=== PATIENT | male | born 1985 | race Caucasian/White ===

== ENCOUNTER 2018-10-28 11:35 | Emergency (ER) | payer MEDICAID, SELFPAY ==
[2018-10-28 11:49] VITALS: BP 140/78; PULSE 84; RESP 16; TEMP 36.8; O2SAT 98
--- NOTE | 2018-10-28 12:05 | W.ED.GENAD ---
Discharge Plan Disposition Patient Disposition: HOME Condition: Stable Discharge Details Chief Complaint: Nk/Back Pain Clinical Impression: Lumbar strain Primary Care Provider: None,None ED Provider: Duong Cedillo Home Meds and New Rx's Prescriptions: New cyclobenzaprine 10 mg tablet 10 mg PO TID PRN (Reason: muscle spasm) Qty: 20 RF: 0 No Action ibuprofen [Ibuprofen IB] 200 MG tablet 400 mg PO QID PRN PRNRF: 0 Discharge Instructions Instructions: Low Back Strain (ED) Additional Instructions: you can take 1000mg tylenol and 600mg ibuprofen every 6 hours for pain as needed I have placed you on a list to follow up with a primary care provider within 2 weeks if you have fevers, inability to urinate or new pain such as abdominal pain return to the emergency department Stand Alone Forms: Work Release Medical Decision Making 33 yo male who denies chronic med problems, no ivdu or prior back surgeries, comes in with lower back pain. states it started at work while lifting a case of beer while bending down. Did not fall or have trauma. Has pain throughout the lumbar region, no midline pain or stepoffs. No saddle anesthesia and normal motor and sensation of the lower legs, urinarting without difficulty, no findings to suggest sea/cauda equina so do not feel emergent mri indicated. No trauma sodo not feel xrays or ct indicated as unlikely fx. No abdominal pain so doubt entities such as sbo, appendicitis, pancreatitis or other acute abdominal pathology. normal vascular exam so doubt dissection at this time. Suspect lumbar strain and less likely disc herniation. Advised f/u with pcp and return precautions given Differential Diagnosis lumbar strain, disc herniation, muscle spasm HPI General Mode of arrival: ambulatory. Date/Time Provider Initiated Documentation: 10/28/18 11:39. Limitations to Documentation: no limitations. Information obtained by: patient. History of Present Illness 33 year old M presents to the emergency department with the chief complaint of back pain, described as moderate, with intensity rated at 6. Quality is described as aching, and is localized to the back. Patient reports no radiation. Patient started experiencing this day(s) (1) and it has been constant. other things that improve symptom(s), (laying flat) Other factors that worsen symptoms (standing ) . Patient notes no other symptoms.. Patient did receive the following treatments prior to arrival, NSAID Related Data Home Medications Medication Instructions Recorded Confirmed ibuprofen [Ibuprofen Ib] 400 mg PO QID PRN PRN 06/23/13 10/28/18 cyclobenzaprine 10 mg PO TID PRN #20 tab 10/28/18 Previous Rx's Medication Instructions Recorded cyclobenzaprine 10 mg PO TID PRN #20 tab 10/28/18 Allergies Allergy/AdvReac Type Severity Reaction Status Date / Time No Known Allergies Allergy Unverified 10/28/18 11:53 General Stated Complaint: Nk/Back Pain AMELIE: 4 Review of Systems Review of Systems All systems reviewed & are unremarkable except as noted in HPI and below Constitutional Denies chills, Denies fever(s) and Denies weakness ENT Denies change in voice Cardiovascular Denies chest pain and Denies dyspnea Respiratory Denies dyspnea Gastrointestinal Denies abdominal pain, Denies nausea and Denies vomiting Genitourinary Denies dysuria Musculoskeletal Denies joint swelling Integumentary/Breasts Denies rash Neurologic Denies weakness Psychiatric Denies depression [facility] Social History Smoking/Tobacco Use Status: Current every day Exam Const General: no acute distress Orientation: alert HENMT Head: normal to inspection Ears: external ears normal General nose exam: external nose normal Mouth: moist mucous membranes Eyes General: appearance normal, both eyes and all related structures Neck Neck: normal visual inspection Resp Effort & Inspection: normal respiratory effort and able to speak in complete sentences Cardio Rate: regular rate Back/Spine/Pelvis Back: no CVA tenderness Skin General skin exam: no rashes or lesions noted Neuro General: alert and oriented x3 Extrem General: normal to inspection Psych Mental Status: mental status grossly normal Course Vital Signs Temperature 36.8 C 10/28/18 11:49 Pulse 84 10/28/18 11:49 Respiratory Rate 16 10/28/18 11:49 Blood Pressure 140/78 10/28/18 11:49 Pulse Oximetry 98 10/28/18 11:49 Temperature 36.8 C 10/28/18 11:49 Temperature Source Temporal Artery Scan 10/28/18 11:49 Pulse 84 10/28/18 11:49 Respiratory Rate 16 10/28/18 11:49 Respiratory Effort Non-Labored 10/28/18 11:52 Blood Pressure 140/78 10/28/18 11:49 Blood Pressure Position Sitting 10/28/18 11:49 Pulse Oximetry 98 10/28/18 11:49 Oxygen Delivery Method Room Air 10/28/18 11:49 Oxygen Flow Rate 0 10/28/18 11:49 Pain Level 6 10/28/18 11:49
--- NOTE | 2018-10-28 12:09 | ED.GENADUL_ITS ---
Discharge Plan Disposition Patient Disposition: HOME Condition: Stable Discharge Details Chief Complaint: Nk/Back Pain Clinical Impression: Lumbar strain Primary Care Provider: None,None ED Provider: Duong Cedillo Home Meds and New Rx's Prescriptions: New cyclobenzaprine 10 mg tablet 10 mg PO TID PRN (Reason: muscle spasm) Qty: 20 RF: 0 No Action ibuprofen [Ibuprofen IB] 200 MG tablet 400 mg PO QID PRN PRNRF: 0 Discharge Instructions Instructions: Low Back Strain (ED) Additional Instructions: you can take 1000mg tylenol and 600mg ibuprofen every 6 hours for pain as needed I have placed you on a list to follow up with a primary care provider within 2 weeks if you have fevers, inability to urinate or new pain such as abdominal pain return to the emergency department Stand Alone Forms: Work Release Medical Decision Making 33 yo male who denies chronic med problems, no ivdu or prior back surgeries, comes in with lower back pain. states it started at work while lifting a case of beer while bending down. Did not fall or have trauma. Has pain throughout the lumbar region, no midline pain or stepoffs. No saddle anesthesia and normal motor and sensation of the lower legs, urinarting without difficulty, no findings to suggest sea/cauda equina so do not feel emergent mri indicated. No trauma sodo not feel xrays or ct indicated as unlikely fx. No abdominal pain so doubt entities such as sbo, appendicitis, pancreatitis or other acute abdominal pathology. normal vascular exam so doubt dissection at this time. Suspect lumbar strain and less likely disc herniation. Advised f/u with pcp and return precautions given Differential Diagnosis lumbar strain, disc herniation, muscle spasm HPI General Mode of arrival: ambulatory . Date/Time Provider Initiated Documentation: 10/28/18 11:39 . Limitations to Documentation: no limitations . Information obtained by: patient . History of Present Illness 33 year old M presents to the emergency department with the chief complaint of back pain, described as moderate, with intensity rated at 6. Quality is described as aching, and is localized to the back. Patient reports no radiation. Patient started experiencing this day(s) (1) and it has been constant. other things that improve symptom(s), (laying flat) Other factors that worsen symptoms (standing ) . Patient notes no other symptoms.. Patient did receive the following treatments prior to arrival, NSAID Related Data Home Medications Medication Instructions Recorded Confirmed ibuprofen [Ibuprofen Ib] 400 mg PO QID PRN PRN 06/23/13 10/28/18 cyclobenzaprine 10 mg PO TID PRN #20 tab 10/28/18 Previous Rx's Medication Instructions Recorded cyclobenzaprine 10 mg PO TID PRN #20 tab 10/28/18 Allergies Allergy/AdvReac Type Severity Reaction Status Date / Time No Known Allergies Allergy Unverified 10/28/18 11:53 General Stated Complaint: Nk/Back Pain AMELIE: 4 Review of Systems Review of Systems All systems reviewed & are unremarkable except as noted in HPI and below Constitutional Denies chills, Denies fever(s) and Denies weakness ENT Denies change in voice Cardiovascular Denies chest pain and Denies dyspnea Respiratory Denies dyspnea Gastrointestinal Denies abdominal pain, Denies nausea and Denies vomiting Genitourinary Denies dysuria Musculoskeletal Denies joint swelling Integumentary/Breasts Denies rash Neurologic Denies weakness Psychiatric Denies depression [facility] Social History Smoking/Tobacco Use Status: Current every day Exam Const General: no acute distress Orientation: alert HENMT Head: normal to inspection Ears: external ears normal General nose exam: external nose normal Mouth: moist mucous membranes Eyes General: appearance normal, both eyes and all related structures Neck Neck: normal visual inspection Resp Effort & Inspection: normal respiratory effort and able to speak in complete sentences Cardio Rate: regular rate Back/Spine/Pelvis Back: no CVA tenderness Skin General skin exam: no rashes or lesions noted Neuro General: alert and oriented x3 Extrem General: normal to inspection Psych Mental Status: mental status grossly normal Course Vital Signs Temperature 36.8 C 10/28/18 11:49 Pulse 84 10/28/18 11:49 Respiratory Rate 16 10/28/18 11:49 Blood Pressure 140/78 10/28/18 11:49 Pulse Oximetry 98 10/28/18 11:49 Temperature 36.8 C 10/28/18 11:49 Temperature Source Temporal Artery Scan 10/28/18 11:49 Pulse 84 10/28/18 11:49 Respiratory Rate 16 10/28/18 11:49 Respiratory Effort Non-Labored 10/28/18 11:52 Blood Pressure 140/78 10/28/18 11:49 Blood Pressure Position Sitting 10/28/18 11:49 Pulse Oximetry 98 10/28/18 11:49 Oxygen Delivery Method Room Air 10/28/18 11:49 Oxygen Flow Rate 0 10/28/18 11:49 Pain Level 6 10/28/18 11:49
[2018-10-28 12:15] VITALS: BP 140/78; PULSE 84; RESP 16; TEMP 36.8; O2SAT 98
== END 2018-10-28 12:16 | disposition home or self-care (01) ==
PROVIDERS: Emergency Provider Emergency Medicine
DX: S39.012A Strain of muscle, fascia and tendon of lower back, initial encounter (principal); X50.0XXA Overexertion from strenuous movement or load, initial encounter
CPT/HCPCS: 99283

== ENCOUNTER 2019-09-02 16:27 | Outpatient (CLI) | payer MEDICAID, SELFPAY ==
--- NOTE | 2019-09-02 13:30 | DI.RAD_ITS ---
EXAM: XR LUMBAR SPINE COMPLETE CLINICAL HISTORY: Low back pain with worsening R leg weakness,M54.5 TECHNIQUE: Five views were obtained. COMPARISON: No exams were available for comparison FINDINGS: There is moderate right convex lumbar scoliosis. The intervertebral disc spaces are well maintained. There is an apparent developmental defect of the anterior superior endplate of L5 vertebral body. There is no evidence of spondylolysis or spondylolisthesis. The SI joints appear well maintained as visualized. IMPRESSION: No evidence of acute process
== END 2019-09-02 16:47 ==
PROVIDERS: PCP Nurse Practitioner; Visit Provider Family Medicine
DX: M54.5 Low back pain (principal); R29.898 Other symptoms and signs involving the musculoskeletal system
CPT/HCPCS: 72110

== ENCOUNTER 2019-09-04 22:39 | Emergency (ER) | payer MEDICAID, SELFPAY ==
[2019-09-04 23:17] VITALS: BP 151/81; PULSE 105; RESP 18; TEMP 37; O2SAT 94
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
[2019-09-05] MEDS: Ketorolac 30 MG/ML VIAL IM (00:28)
[2019-09-05] MEDS: diazePAM 5 MG TAB PO (00:28)
[2019-09-05] MEDS: Lidocaine 5% Patch 1 PATCH TP (01:26)
[2019-09-05 01:34] VITALS: BP 131/76; PULSE 76; RESP 16; O2SAT 95
== END 2019-09-05 02:10 | disposition home or self-care (01) ==
PROVIDERS: Emergency Provider Student in an Organized Health Care Education/Training Program; PCP Nurse Practitioner
DX: M54.16 Radiculopathy, lumbar region (principal); X50.9XXA Other and unspecified overexertion or strenuous movements or postures, initial encounter
CPT/HCPCS: 96372; 99284; J1885

== ENCOUNTER 2019-09-06 17:17 | Outpatient (CLI) | payer MEDICAID, SELFPAY ==
--- NOTE | 2019-09-06 15:15 | DI.RAD_ITS ---
EXAM: XR HIP RT COMPLETE AND AP PELVIS INDICATION: Worsening sciatica, need to rule out hip fracture. COMPARISON: No exams were available for comparison TECHNIQUE: 2D digital imaging was performed. FINDINGS: No acute fracture or dislocation is identified. The sacroiliac joints and symphysis pubis are intact . Bones are normally mineralized. The soft tissues are unremarkable. IMPRESSION: Negative examination.
== END 2019-09-06 17:37 ==
PROVIDERS: PCP Nurse Practitioner; Visit Provider Family Medicine
DX: M25.551 Pain in right hip (principal); M54.31 Sciatica, right side
CPT/HCPCS: 73502

== ENCOUNTER 2022-04-29 02:13 | Inpatient (IN) | payer MEDICAID, SELFPAY ==
[2022-04-29] VITALS (20 sets, daily range): BP systolic 103–150; BP diastolic 48–87; PULSE 67–96; RESP 13–20; TEMP 36.3–37.1; O2SAT 92–100
--- NOTE | 2022-04-29 | DI.CT_ITS ---
Exam(s) CT ABDOMEN PELVIS WO EXAM: CT ABDOMEN PELVIS WO CLINICAL HISTORY: NAUSEA, VOMITING, ABD PAIN. TECHNIQUE: Imaging Protocol: Axial computed tomography images with coronal and sagittal reformatted images were created and reviewed. Oral: no COMPARISON: No exams were available for comparison FINDINGS: ABDOMEN: Lung Bases: Normal where visualized. Liver: Normal density. No measurable mass. Gallbladder and biliary tract: No radiodense calculus or dilation. Pancreas: Some motion artifact at this level. Normal density, no abnormal calcifications or inflamma tory process. Spleen: Normal. Kidneys: Normal size, contour and axis. No radiodense stones or obstructive uropathy. No masses seen. Adrenal glands: No masses seen. Lymph nodes: Within normal limits. Abdominal Aorta: Abdominal portion non-dilated. PELVIS: Bladder: Symmetric distention, no gross wall thickening. Bowel: The appendix is dilated extends medially from the cecum. There are surrounding inflammatory c hanges anterior to the right psoas muscle. There are multiple adjacent reactive lymph nodes. No di screte abscess or perforation. No free fluid. Diverticulosis is noted in the sigmoid region. No di verticulitis. Stomach and small bowel unremarkable. No obstruction . Reproductive organs: Within normal limits. Bones: Within normal limits. IMPRESSION: Findings consistent with acute appendicitis. No perforation or abscess. RADIATION DOSE DELIVERED: 1,044.03mGy.cm Total DLP DATA REPOSITORY: All CT scans at this facility are submitted to the National Radiology Data Registry (NRDR) Dose Index Registry (DIR) with the [employer] (ACR). RADIATION OPTIMIZATION: All CT scans at this facility use at least one of these dose optimization te chniques: automated exposure control; mA and/or kV adjustment per patient size (includes targeted exa ms where dose is matched to clinical indication); or iterative reconstruction.
[2022-04-29] MEDS: Normal Saline 1,000 ML 1000 ML IV (03:00)
[2022-04-29] MEDS: Ondansetron 4 MG/2 ML VIAL IVP (03:00)
[2022-04-29] MEDS: PIPERACILLIN/TAZO 4.5 GM in Normal Saline 100 ML IVPB ×3 (05:20→17:54)
[2022-04-29] MEDS: Normal Saline 1,000 ML 75 ML IV (05:20)
[2022-04-29] MEDS: MORPHine 4 MG/ML SYR IVP (06:15)
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
[2022-04-29 07:16] LABS: Source Nasal/Nares
[2022-04-29 07:37] LABS: WBC 14.92 10^3/uL (4.4-10.8)
[2022-04-29 07:38] LABS: HCT 51.8 % (40.0-50.0); HGB 17.5 g/dL (13.5-17.5); MCH 28.4 pg (27.0-33.0); MCHC 33.8 % (32.0-36.0); MCV 84 fL (80-95); MPV 11.3 fL (8.0-11.0); Platelet Count 202 10^3/uL (130-400); RBC 6.16 10^6/uL (4.36-5.78); RDW 13.2 % (11.8-14.1); RDW-SD 40.1 fL
[2022-04-29 07:39] LABS: Abs Immature Grans 0.07 10^3/uL (0.0-0.06); Absolute Lymphocyte Count 2.88 10^3/uL (1.2-3.4); Absolute Monocyte Count 1.38 10^3/uL (0.1-0.8); Absolute Neutrophil Count 10.19 10^3/uL (1.2-6.7); Basophils % 0.7; Immature Grans % 0.5; Lymphocytes % 19.3; Monocytes % 9.2; Neutrophils % 68.3
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
[2022-04-29 07:40] LABS: Diff Comment Agrees w/ Instrument; RBC Morphology Normal
[2022-04-29 07:41] LABS: Albumin 3.5 g/dL (3.4-5.0); Alkaline Phosphatase 53 U/L (46-116); Anion Gap 8.6 mmol/L (3-11); BUN 15 mg/dL (7-18); Bilirubin, Total 0.6 mg/dL (0.2-1.0); CO2 29.4 mmol/L (21.0-32.0); Calcium 9.2 mg/dL (8.5-10.1); Chloride 100 mmol/L (98-107); Glucose 106 mg/dL (74-106); Potassium 4.1 mmol/L (3.5-5.1); Sodium 138 mmol/L (136-145)
[2022-04-29 07:42] LABS: ALT 24 U/L (16-63); AST 13 U/L (15-37); Lipase 81 U/L (73-393)
[2022-04-29 07:43] LABS: Bilirubin Negative (Negative); Blood Moderate (Negative); Clarity Clear (Clear); Glucose Negative (Negative); Ketones Trace mg/dL (Negative); Leukocyte Esterase Negative (Negative); Nitrite Negative (Negative); Specific Gravity >= 1.030 (1.005-1.025); Urobilinogen 0.2 EU/dL (Up TO 0.2); pH 5.5 (5-8)
[2022-04-29 07:44] LABS: Bacteria Rare HPF (Negative); Epithelial Cells Rare HPF (Negative); WBC 0-2 HPF (0-5)
[2022-04-29 07:45] LABS: C & S Indicated? No; Mucus Trace (Negative)
[2022-04-29 08:15] LABS: COVID-19 PCR Negative (Negative)
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
[2022-04-29] MEDS: Lactated Ringers 1,000 ML 30 ML IV (09:38)
--- NOTE | 2022-04-29 10:56 | APP_PTH ---
PATIENT: Del Harris LOC: [facility]#:[id number] AGE/SX: 37/M ROOM: 227 RE04/29/[address]: Elise Bashir : 1985 BED: A DIS: 05/01/2022 SPEC #: [id number] RECD: 04/29/22 12:50 STATUS: SOHAM REQ #: [id number] GUY: 04/29/22 10:[address]: Elise Bashir DEPT: Surgical Specimen RECD BY: Katina Saucedo ENTERED: 04/29/22 12:50 SP TYPE: Appendix OTHR DR: Eleonora Flores APRN Tissues: 1 - APPENDIX NOT INCIDENTAL Procedures: GROSS AND MICRO LEVEL 3 Comments: [id number]
[2022-04-29] MEDS: fentaNYL 100 MCG/2 ML VIAL IVP ×2 (11:59→12:24)
--- NOTE | 2022-04-29 12:12 | ROE_ITS ---
Date of service: 04/29/22 Time of Service: 12:12 Operative Note Operative Note DATE OF PROCEDURE: 04/29/22 PRE-OP DIAGNOSIS: Acute appendicitis POST-OP DIAGNOSIS: other (Ruptured appendix ) PROCEDURE: Attempted laparoscopic appendectomy Open appendectomy SURGEON: Elise Bashir TALENT ACQUISITION LEAD: Magdalene Larson ANESTHESIA TYPE: Local By Surgeon and General LMA/ETT Refer to Anesthesia Record ESTIMATED BLOOD LOSS: 25 PATHOLOGY: other COMPLICATIONS: None Patient was transported to: PACU Patient's condition: stable Procedure Description: INDICATIONS: The patient has signs and symptoms compatible with acute appendicitis and is brought to the OR for laparoscopic appendectomy, possible open procedure. Informed consent is obtained for the procedural (explained in simple layman's terms that the pt and/or family could understand) explaining risks vs benefits and alternatives to the procedure and consequences if we do not do the procedure. Risks include but are not limited to:bleeding,infections, pneumonia, blood clots/DVT/PE, anesthesia(aspiration, damage to teeth/airway/VA/CVA//prolonged mechanical ventilation/PTX/IV infections), damage to bowel, bladder,blood vessels, ureters. Damage to solid organs requiring removal. Infertility. Leakage from anastomosis requiring colostomy. Wound infections requirng further surgery. Scarring and disfigurement. Subsequent bowel obstructions from scar tissue. Possible open procedure if minimaly invsive procedure is being attempted. Abscess and stump appendicitis as well as others. DESCRIPTION OF PROCEDURE: The patient was brought to the operating room suite and placed in supine position. Anesthesia was administered per the Department of Anesthesia. A Correia catheter and OG tube are placed. The patient was prepped and draped in the usual sterile fashion using ChloraPrep scrub solution. Pause for the cause was done. 30 mL of 1% buffered was used for local anesthetization. A stab incision was made in the umbilicus and the Veress was inserted. Drop test was positive and insufflation was begun. When 15 mm of pressure was noted on the monitor, the Veress was removed, a #5 port inserted. Camera inserted through the port shows no damage to underlying structures. Bowel, liver and stomach that are visualized are normal in appearance. Pelvic organs are not visualized. The appendix is inflamed, erythematous,enlarged. There is purulent fluid around the appendix the appendix is curled back on itself and adhered down to the cecum.. There is no purulent drainage in the pelvis. A 12 mm port was then placed in the suprapubic position under direct visualization following creation of a local field block as well as a second 5 mm port in the LLQ. When I attempt to grasp the appendix and elevate it falls apart. We ended up with 3 separate pieces of. There is a purulent discharge that is spilled this is suctioned and the area irrigated. I am unable to define the base of the appendix. And I am unable to manipulate the appendix as it continues to fall apart. At this point it is evident that I cannot get this appendix out laparoscopically and the procedure is converted to open procedure. All laparoscopic instruments are passed off the field. A local anesthetic was infiltrated into the right lower quadrant and a small incision was made. Dissection was carried down to the fascia. The external oblique was sharply divided. The muscles were retracted apart. The peritoneum was then incised. Some nonpurulent fluid was obtained, and this was sent for culture. The appendix was easily identified. The cecum was carefully brought out of the incision using a Ama.??The remainder the appendix was then finger fractured/dissected out and removed. There is purulent material and membrane posterior to the cecum. This was washed and irrigated and debrided. The mesoappendix was divided between clamps and clips applied. I was able to identify the base of the appendix and is healthy enough to hold sutures. The base of the appendix was doubly clamped between two hemostats, ligated and tied off.? The tip was than imbricated with a 4-0 vicryl.? . The suture line was examined; it was intact and hemostatic. Hemostasis was also assured at the mesoappendix. The cecum was then reduced back into the abdominal cavity and irrigation was then performed. A 15 mm round drain is placed through the umbilical port site and brought out, and sewn in place with a 2-0 nylon. The abdomen was then irrigated with a second liter of saline. The wound was then closed in layers. The peritoneum was closed with a running 2- 0 Vicryl suture. The rest of the layers were closed with interrupted 0 Vicryl sutures. Cellurate was placed above the fascia to add in healing. The skin was irrigated and then closed in layers. The dermis was reapproximated with 3-0 Vicryl suture, and the skin was closed with interupted jesenia. The port sites were closed with 4-0 Monocryl in in a running subcuticular fashion and skin glue was applied. Bedadine soaked pledgets are placed in the wound. The patient tolerated the procedure well and was transferred to the recovery room in stable condition. The specimen was sent for routine evaluation
[2022-04-29] MEDS: Normal Saline Flush 10 ML SYR IVP ×2 (12:55→17:17)
[2022-04-29] MEDS: Normal Saline 500 ML 30 ML IV (12:56)
[2022-04-29] MEDS: FAMOTIDINE 20 MG in Normal Saline 100 ML 400 MG IVPB (14:35)
[2022-04-29] MEDS: ACETAMINOPHEN 1,000 MG/100 ML BTL 400 MG IVPB (17:15)
--- NOTE | 2022-04-29 18:30 | W.PM.PROGNOT ---
Date of Service Date of service: 04/29/22 Time of Service: 21:00 Assessment and Plan Assessment and plan (1) Ruptured suppurative appendicitis: Status: Acute Assessment and plan: The patient is doing well post-op. Their pain is well controlled. They are having no nausea or vomiting. The pt is not having any chest pain or SOB, productive cough; no calf pain or swelling. The pt is making good urine. The pt pain is adequately controlled. The case was discussed with nursing and patient?s progress reviewed. All of the pt's home medications were addressed and adjusted accordingly for their oral intact status. HEENT: no jaundice. no eye pain/drainage/redness/swelling. Mild sore throat Cardio- NSR no chest pain, BP stable. Pulm: no sob or productive cough. no hemoptysis Incision- clean/dry. Dressing intact no excessive bleeding or drainage I discussed with the patient and/or there family about the findings in surgery and the pt's progress. We reviewed expectations for progress in the hospital; what the pt could expect for recovery time and length of stay. We discussed the importance of walking and pulmonary toilet to avoid blood clots and pneumonia. Continue current plans for pulmonary toilet, GI and DVT prophylaxis. We shall continue the current plan for pain management as it is at an appropriate level, and working well for the pt. Appropriate measures will be taken for constipation prevention, and this was also reviewed with the pt. The wound care plan was reviewed with nursing as well. -nicotine patches -cont IV abx -pt tolerating clears -encourage walking/IS -see orders see orders (2) Tobacco abuse: Status: Acute Objective Last Vital Signs Temp 36.6 C 04/29/22 14:49 Pulse 96 H 04/29/22 15:32 Resp 16 04/29/22 14:49 BP 131/65 04/29/22 14:49 Pulse Ox 95 04/29/22 14:49 Laboratory Results - last 24 hr 04/29/22 04/29/22 04/29/22 02:40 02:50 02:50 WBC 14.92 H RBC 6.16 H Hgb 17.5 Hct 51.8 H MCV 84 MCH 28.4 MCHC 33.8 RDW 13.2 Plt Count 202 MPV 11.3 H Immature Gran % 0.5 Neutrophils % 68.3 Lymphocytes % 19.3 Monocytes % 9.2 Eosinophils % 2.0 Basophils % 0.7 Nucleated RBC % 0.0 Absolute Neutrophils 10.19 H Absolute Lymphocytes 2.88 Absolute Monocytes 1.38 H Absolute Eosinophils 0.30 Absolute Basophils 0.10 RBC Morphology Normal Sodium 138 Potassium 4.1 Chloride 100 Carbon Dioxide 29.4 Anion Gap 8.6 BUN 15 Creatinine 1.0 Estimated GFR/1.73 m2 >= 60.00 Glucose 106 Calcium 9.2 Total Bilirubin 0.6 AST 13 L ALT 24 Alkaline Phosphatase 53 Total Protein 8.0 Albumin 3.5 Lipase 81 Urine Color Yellow Urine Clarity Clear Urine pH 5.5 Ur Specific [place] >= 1.030 H Urine Protein 30 H Urine Ketones Trace Urine Blood Moderate H Urine Nitrite Negative Urine Bilirubin Negative Urine Urobilinogen 0.2 Ur Leukocyte Esterase Negative Urine RBC 5-10 H Urine WBC 0-2 Ur Epithelial Cells Rare Urine Crystals Urine Bacteria Rare Urine Mucus Trace Ur Culture Indicated? No Urine Glucose Negative COVID-19 Source SARS-CoV-2 (PCR) 04/29/22 04/29/22 02:50 06:56 WBC RBC Hgb Hct MCV MCH MCHC RDW Plt Count MPV Immature Gran % Neutrophils % Lymphocytes % Monocytes % Eosinophils % Basophils % Nucleated RBC % Absolute Neutrophils Absolute Lymphocytes Absolute Monocytes Absolute Eosinophils Absolute Basophils RBC Morphology Sodium Potassium Chloride Carbon Dioxide Anion Gap BUN Creatinine Estimated GFR/1.73 m2 Glucose Calcium Total Bilirubin AST ALT Alkaline Phosphatase Total Protein Albumin Lipase Urine Color Urine Clarity Urine pH Ur Specific [place] Urine Protein Urine Ketones Urine Blood Urine Nitrite Urine Bilirubin Urine Urobilinogen Ur Leukocyte Esterase Urine RBC Urine WBC Ur Epithelial Cells Urine Crystals Not Applicable Urine Bacteria Urine Mucus Ur Culture Indicated? Urine Glucose COVID-19 Source Nasal/Nares SARS-CoV-2 (PCR) Negative
[2022-04-29] MEDS: Gabapentin 100 MG CAP PO (21:10)
[2022-04-30] VITALS (7 sets, daily range): BP systolic 116–138; BP diastolic 68–73; PULSE 70–85; RESP 16–20; TEMP 36.6–37.4; O2SAT 91–93
[2022-04-30] MEDS: Normal Saline Flush 10 ML SYR IVP ×3 (00:01→05:38)
[2022-04-30] MEDS: PIPERACILLIN/TAZO 4.5 GM in Normal Saline 100 ML IVPB ×5 (00:03→23:32)
[2022-04-30] MEDS: FAMOTIDINE 20 MG in Normal Saline 100 ML 400 MG IVPB ×2 (02:11→14:03)
[2022-04-30] MEDS: ACETAMINOPHEN 1,000 MG/100 ML BTL 400 MG IVPB ×5 (05:37→23:32)
[2022-04-30] MEDS: traMADol 50 MG TAB PO ×2 (05:48→14:04)
[2022-04-30 06:28] LABS: Abs Immature Grans 0.11 10^3/uL (0.0-0.06); Absolute Eosinophil Count 0.05 10^3/uL (0.0-0.7); Basophils % 0.2; Eosinophils % 0.3; HCT 46.9 % (40.0-50.0); HGB 15.9 g/dL (13.5-17.5); Immature Grans % 0.6; Lymphocytes % 11.7; MCH 28.4 pg (27.0-33.0); MCHC 33.9 % (32.0-36.0); MCV 84 fL (80-95); MPV 11.2 fL (8.0-11.0); Monocytes % 9.9; Neutrophils % 77.3; Platelet Count 200 10^3/uL (130-400); RDW 12.9 % (11.8-14.1); RDW-SD 39.2 fL; WBC 17.14 10^3/uL (4.4-10.8)
[2022-04-30 06:35] LABS: Absolute Basophil Count 0.03 10^3/uL (0.0-0.2); Absolute Lymphocyte Count 2.01 10^3/uL (1.2-3.4); Absolute Neutrophil Count 13.25 10^3/uL (1.2-6.7)
[2022-04-30 06:45] LABS: Diff Comment Agrees w/ Instrument
[2022-04-30 06:46] LABS: RBC Morphology Normal
[2022-04-30] MEDS: Enoxaparin 40 MG/0.4 ML SYR SC (07:31)
[2022-04-30] MEDS: Polyethylene Glycol 3350 17 GM PACKET PO (07:31)
--- NOTE | 2022-04-30 12:52 | W.PM.PROGNOT ---
Date of Service Date of service: 04/30/22 Time of Service: 12:52 Assessment and Plan Assessment and plan (1) Ruptured suppurative appendicitis: Status: Acute Assessment and plan: POD #1 status post open appendectomy for ruptured suppurative appendicitis ROSIE drain in place with serosanguineous drainage. Patient is tolerating clear liquid diet Per patient report, pain is well controlled Strongly encouraged to continue continued ambulation as well as sitting in the chair for all meals Continue IV antibiotics patient will require another day or 2. (2) Tobacco abuse: Status: Acute Subjective Subjective Interval history since last seen: Patient reports that he is feeling well this morning. He was able to get out of bed and attempted to use the restroom. He expresses that his abdomen is sore mostly on the right side. He denies any fever, chills or night sweats. Exam Const General: cooperative, healthy appearing and comfortable Orientation: alert and oriented x3 Resp Effort & Inspection: normal respiratory effort, no audible wheezes and no cough GI Inspection: normal to inspection Palpation: soft, guarding in the RLQ and tender in the RLQ Objective Last Vital Signs Temp 36.8 C 04/30/22 11:23 Pulse 85 04/30/22 11:23 Resp 18 04/30/22 11:23 BP 117/69 04/30/22 11:23 Pulse Ox 92 04/30/22 11:23 Laboratory Results - last 24 hr 04/30/22 04/30/22 06:08 06:08 WBC 17.14 H RBC 5.60 Hgb 15.9 Hct 46.9 MCV 84 MCH 28.4 MCHC 33.9 RDW 12.9 Plt Count 200 MPV 11.2 H Immature Gran % 0.6 Neutrophils % 77.3 Lymphocytes % 11.7 Monocytes % 9.9 Eosinophils % 0.3 Basophils % 0.2 Nucleated RBC % 0.0 Absolute Neutrophils 13.25 H Absolute Lymphocytes 2.01 Absolute Monocytes 1.70 H Absolute Eosinophils 0.05 Absolute Basophils 0.03 RBC Morphology Normal C-Reactive Protein 13.60 H
--- NOTE | 2022-04-30 14:22 | W.ANESPOSTOP ---
Postoperative Evaluation Date, Time and Location Date Performed: 04/30/22 Time Performed: 14:22 Patient Location: Med/Surg Vital Signs Most Recent Imported Vital Signs: Most Recent Vital Signs Temp Pulse Resp BP Pulse Ox 36.8 C 85 18 117/69 92 04/30/22 11:23 04/30/22 11:23 04/30/22 11:23 04/30/22 11:23 04/30/22 11:23 Pain Score Most Recent Pain Score: Most Recent Pain Score Pain Level 5 04/30/22 14:04 Assessment Mental Status: Awake (Alert & Oriented to Patient Baseline) Airway and Respiratory Function: Patent airway with normal (patient baseline) respiratory exam Cardiovascular Function: Hemodynamically Stable Hydration Status: Adequately Hydrated Nausea & Vomiting: No Nausea or Vomiting Pain: Pt. Denies Any Pain Peripheral Nerve Block: Patient did not receive a nerve block
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
[2022-04-30] MEDS: Docusate Sodium 100 MG CAP PO (21:08)
[2022-04-30] MEDS: Gabapentin 100 MG CAP PO (21:08)
[2022-05-01] MEDS: FAMOTIDINE 20 MG in Normal Saline 100 ML 400 MG IVPB (01:00)
[2022-05-01] MEDS: PIPERACILLIN/TAZO 4.5 GM in Normal Saline 100 ML IVPB ×2 (05:09→12:23)
[2022-05-01 06:20] LABS: Abs Immature Grans 0.06 10^3/uL (0.0-0.06); Absolute Basophil Count 0.07 10^3/uL (0.0-0.2); Absolute Eosinophil Count 0.17 10^3/uL (0.0-0.7); Absolute Lymphocyte Count 1.88 10^3/uL (1.2-3.4); Absolute Monocyte Count 1.26 10^3/uL (0.1-0.8); Absolute Neutrophil Count 8.54 10^3/uL (1.2-6.7); Basophils % 0.6; Eosinophils % 1.4; HCT 41.9 % (40.0-50.0); HGB 14.4 g/dL (13.5-17.5); Immature Grans % 0.5; Lymphocytes % 15.7; MCH 28.7 pg (27.0-33.0); MCHC 34.4 % (32.0-36.0); MCV 84 fL (80-95); MPV 11.3 fL (8.0-11.0); Monocytes % 10.5; Neutrophils % 71.3; Platelet Count 169 10^3/uL (130-400); RBC 5.02 10^6/uL (4.36-5.78); RDW 13.2 % (11.8-14.1); RDW-SD 40.6 fL; WBC 11.98 10^3/uL (4.4-10.8)
[2022-05-01] MEDS: ACETAMINOPHEN 1,000 MG/100 ML BTL 400 MG IVPB ×2 (06:25→11:53)
[2022-05-01] MEDS: Normal Saline Flush 10 ML SYR IVP ×2 (06:25→11:53)
[2022-05-01 06:39] LABS: C-Reactive Protein 13.82 mg/dL (0.0-0.3)
[2022-05-01 07:22] VITALS: BP 116/70; PULSE 78; RESP 16; TEMP 37; O2SAT 93
[2022-05-01] MEDS: Enoxaparin 40 MG/0.4 ML SYR SC (07:35)
--- NOTE | 2022-05-01 09:07 | W.PM.PROGNOT ---
Date of Service Date of service: 05/01/22 Time of Service: 09:07 Assessment and Plan Assessment and plan (1) Ruptured suppurative appendicitis: Status: Acute Assessment and plan: POD #2 status post open appendectomy for ruptured suppurative appendicitis ROSIE drain in place with serosanguineous drainage. Patient is tolerating post-op diet Per patient report, pain is well controlled Strongly encouraged to continue continued ambulation as well as sitting in the chair for all meals His white count is down to 11.98 today. Discussed that he is at high risk for abscess formation. Will discuss with Dr. Bashir regarding possible discharge on p.o. antibiotics later today versus tomorrow. Patient seen and examined. Discharge to home today. He will go home with drain and home health care. He will go home with 5 days of Augmentin. He will follow-up with me in clinic on Thursday. We reviewed wound care/activity/warning signs. We will use Advil and Tylenol, ice, gabapentin and muscle relaxers for pain control. He does have problems swallowing pills and I suggest he either crush them or swallow them in applesauce or pudding. We reviewed warning signs and when to go to the ER. All questions are answered and stable for discharge. We will arrange home health for drain (2) Tobacco abuse: Status: Acute Subjective Subjective Interval history since last seen: Arrived with patient sitting comfortably in the chair, patient expresses that he is eager to return home to be with his son. He states that his abdomen is sore, however feels that his pain is being well controlled he states that he is passing flatus however has not had a bowel movement. He denies any nausea or vomiting. Denies any fevers, chills or night sweats. Exam Const General: cooperative, healthy appearing and comfortable Orientation: alert and oriented x3 Resp Effort & Inspection: normal respiratory effort, no audible wheezes and no cough GI Palpation: soft, no guarding and tender Auscultation: normal bowel sounds Other: ROSIE drain with serosanguineous fluid Wound dressings in place. Objective Last Vital Signs Temp 37.0 C 05/01/22 07:22 Pulse 78 05/01/22 07:22 Resp 16 05/01/22 07:22 BP 116/70 05/01/22 07:22 Pulse Ox 93 05/01/22 07:22 Laboratory Results - last 24 hr 05/01/22 05/01/22 06:11 06:11 WBC 11.98 H RBC 5.02 Hgb 14.4 Hct 41.9 MCV 84 MCH 28.7 MCHC 34.4 RDW 13.2 Plt Count 169 MPV 11.3 H Immature Gran % 0.5 Neutrophils % 71.3 Lymphocytes % 15.7 Monocytes % 10.5 Eosinophils % 1.4 Basophils % 0.6 Nucleated RBC % 0.0 Absolute Neutrophils 8.54 H Absolute Lymphocytes 1.88 Absolute Monocytes 1.26 H Absolute Eosinophils 0.17 Absolute Basophils 0.07 C-Reactive Protein 13.82 H
--- NOTE | 2022-05-01 10:03 | PDOC.HHF2F_ITS ---
Home Health Certification Home Health Certification: 1. Encounter Date and Reason I certify that Del Harris was seen by Elise Bashir on 05/01/22 and that I had a [id number] encounter with this patient that meets the physician face to face encounter requirements. 2. Clinical Findings Supporting Skilled Need and Homebound Status I certify that home health services are medically necessary, include either intermittent prison and/or physical/speech therapy, and that this patient is homebound in that absences from the home require considerable and taxing effort and are infrequent or of short duration, or are attributable to the need to receive medical care. [X] (a) Attached documentation from encounter provides clinical findings supporting skilled need and homebound status (including what assistance patient requires to leave the home). The encounter with the patient was in whole, or in part, for the following medical condition, which is the primary reason for home health care: Appendicitis [facility]: For drain care and teaching Physical Therapy: Speech Therapy: Homebound: Yes 3. Certification and Authentication I certify that I composed the above information based on my clinical judgement relating to this patient's medical condition and, if applicable, clinical findings communicated to me by the NPP or inpatient physician who performed the Home Health Referral. All further orders will be obtained through Jorge Flores (Community Based Physician - PCP)
[2022-05-01 10:12] VITALS: BMI 31.6
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
--- NOTE | 2022-05-01 14:05 | PDOC.CMDIS ---
- If Service Date Differs Date of service: 05/01/22 Time of Service: 14:05 LACE Index Scoring Tool - Questions: Length of Stay (in days): 2 Acuity (Admit via E.D.?): Yes E.D. Visits: 1 - Answers: Total Score: 6 Risk of Readmission: Low Risk Care Management Discharge Reason for Hospitalization: Appendicitis Discharge Plan: Del will return home with new orders for HH RN to assist with drain care. CM informed [facility] of his discharge. He will drive himself home, and his sister will meet him at home to help him settle in with his son. He will follow up with surgical services, his PCP and his discharge plan of care. He is happy to be going home. Patient/Family Education Needs: Review discharge instructions and limitations, discussion of self care needs including ask me three. Services Needed at Discharge: Home Health Care Services (HH RN)
== END 2022-05-01 14:12 | disposition home or self-care (01) | DRG 340 ==
LOC: ER 07:19 → MS 07:40
PROVIDERS: Admitting Provider Surgery; Emergency Provider Emergency Medicine; PCP Nurse Practitioner; Visit Provider Surgery
PROC: 0DTJ4ZZ Resection of Appendix, Percutaneous Endoscopic Approach (ICD-10-PCS; CPT 44970; principal; 2022-04-29 10:15)
DX: K35.32 Acute appendicitis with perforation, localized peritonitis, and gangrene, without abscess (principal); F17.210 Nicotine dependence, cigarettes, uncomplicated; Z53.31 Laparoscopic surgical procedure converted to open procedure; F12.90 Cannabis use, unspecified, uncomplicated
CPT/HCPCS: 44960; 36415; 80053; 83690; 87635; 96361; 96365; 96366; 96375; 99285; J1650; 74176; 81003; 81015; 85025; 86140; 88304; J0131; J1100; J1885; J2270; J2405; J2543; J3010

== ENCOUNTER 2023-03-24 09:35 | Emergency (ER) | payer SELFPAY ==
--- NOTE | 2023-03-24 09:30 | DI.CT_ITS ---
Exam(s) CT ABDOMEN PELVIS W EXAM: CT ABDOMEN PELVIS W CLINICAL HISTORY: LLQ pain TECHNIQUE: Imaging Protocol: Axial computed tomography images with coronal and sagittal reformatted images were created and reviewed CONTRAST MATERIAL: Intravenous: Omnipaque 350 Contrast volume:100 mL Oral: No COMPARISON: CT CT ABDOMEN PELVIS WO from 04/29/2022 FINDINGS: ABDOMEN: Lung Bases: There is dependent atelectasis. Liver: There is decreased attenuation of the liver raising the question of fatty infiltration. No me asurable mass. Portal, Superior Mesenteric, and Splenic Veins: Unremarkable. Gallbladder and Biliary Tract: No radiodense calculus or dilation. Pancreas: Normal density, no abnormal calcifications or inflammatory process. Spleen: Normal. Adrenals: No masses seen. Kidneys: Normal size, contour and axis. No radiodense stones or obstructive uropathy. No masses seen. Abdominal Aorta: Abdominal portion non-dilated. Bowel: There are diverticula seen in the colon. There is bowel wall thickening and pericolonic infla mmatory changes seen at the descending colon consistent with diverticulitis. There is no evidence of bowel obstruction. The patient is status post appendectomy. Peritoneal Cavity: No ascites, collection or mesenteric inflammatory response. There is a small amou nt of air adjacent to the inflamed bowel which may represent a diverticulum. No significant amount o f free air is seen in the abdomen or pelvis. Lymph Nodes: Within normal limits. Bones: Within normal limits for the patient's age. Soft Tissues: Unremarkable. PELVIS: Bladder: Symmetric distention, no gross wall thickening. Reproductive Organs: Unremarkable as visualized. Lymph Nodes: Within normal limits. Bones: Within normal limits for the patient's age. IMPRESSION: 1. Acute diverticulitis involving the descending colon. No evidence of an abscess. 2. Findings were discussed with Dr. Kee at 1:17 p.m. on 03/24/2023. RADIATION DOSE DELIVERED: 1,282.73mGy.cm Total DLP DATA REPOSITORY: All CT scans at this facility are submitted to the National Radiology Data Registry (NRDR) Dose Index Registry (DIR) with the [employer] (ACR). RADIATION OPTIMIZATION: All CT scans at this facility use at least one of these dose optimization te chniques: automated exposure control; mA and/or kV adjustment per patient size (includes targeted exa ms where dose is matched to clinical indication); or iterative reconstruction.
[2023-03-24 09:39] VITALS: BP 137/79; PULSE 113; RESP 18; TEMP 36.8; O2SAT 96
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
[2023-03-24 09:55] LABS: Abs Immature Grans 0.06 10^3/uL (0.0-0.06); Absolute Lymphocyte Count 2.55 10^3/uL (1.2-3.4); Absolute Monocyte Count 1.08 10^3/uL (0.1-0.8); Absolute Neutrophil Count 8.88 10^3/uL (1.2-6.7); Basophils % 0.5; Eosinophils % 1.3; HCT 53.5 % (40.0-50.0); HGB 18.4 g/dL (13.5-17.5); Immature Grans % 0.5; Lymphocytes % 19.9; MCH 28.7 pg (27.0-33.0); MCHC 34.4 % (32.0-36.0); MCV 83 fL (80-95); MPV 11.5 fL (8.0-11.0); Monocytes % 8.4; Neutrophils % 69.4; Platelet Count 196 10^3/uL (130-400); RBC 6.42 10^6/uL (4.36-5.78); RDW 13.2 % (11.8-14.1); RDW-SD 39.8 fL
[2023-03-24] MEDS: Normal Saline 1,000 ML 1000 ML IV (10:01)
[2023-03-24] MEDS: Ketorolac 15 MG/ML VIAL IVP (10:01)
[2023-03-24] MEDS: Ondansetron 4 MG/2 ML VIAL IVP (10:02)
[2023-03-24 10:03] LABS: Absolute Basophil Count 0.06 10^3/uL (0.0-0.2); Absolute Eosinophil Count 0.17 10^3/uL (0.0-0.7)
[2023-03-24 10:09] LABS: ALT 32 U/L (16-63); AST 16 U/L (15-37); Albumin 3.9 g/dL (3.4-5.0); Alkaline Phosphatase 57 U/L (46-116); Anion Gap 6.7 mmol/L (3-11); BUN 12 mg/dL (7-18); Bilirubin, Total 0.9 mg/dL (0.2-1.0); CO2 27.3 mmol/L (21.0-32.0); CREATININE 1.1 mg/dL (0.70-1.30); Calcium 9.3 mg/dL (8.5-10.1); Chloride 103 mmol/L (98-107); Estimated GFR 89.22 (mL/min/1.73m2); Glucose 100 mg/dL (74-106); Potassium 4.1 mmol/L (3.5-5.1); Sodium 137 mmol/L (136-145); Total Protein 8.4 g/dL (6.4-8.2)
[2023-03-24] MEDS: Omnipaque 350 MG/ML 500 ML BTL-Imaging package IJ (12:43)
[2023-03-24] MEDS: Normal Saline - Diluent 50 ML VIAL IJ (12:44)
[2023-03-24] MEDS: Amoxicillin 875/Clav. 125 TAB PO (13:25)
[2023-03-24 13:26] LABS: Bilirubin Small (Negative); Blood Trace-intact (Negative); Clarity Clear (Clear); Glucose Negative (Negative); Ketones 15 mg/dL (Negative); Leukocyte Esterase Negative (Negative); Nitrite Negative (Negative); pH 5.5 (5-8)
[2023-03-24 13:32] VITALS: BP 125/68; PULSE 86; RESP 18; O2SAT 96
[2023-03-24 13:38] LABS: Epithelial Cells Rare HPF (Negative); RBC 0-2 HPF (0-2); WBC 0-2 HPF (0-5)
[2023-03-24 13:39] LABS: Bacteria Negative HPF (Negative); C & S Indicated? No; Casts Negative LPF (Negative); Crystals Negative HPF (Negative); Mucus Moderate (Negative)
== END 2023-03-24 13:39 | disposition home or self-care (01) ==
PROVIDERS: Emergency Provider Emergency Medicine; PCP Nurse Practitioner
DX: K57.92 Diverticulitis of intestine, part unspecified, without perforation or abscess without bleeding (principal)
CPT/HCPCS: 36415; 80053; 96361; 96374; 96375; 99285; 74177; 81003; 81015; 85025; 99284; J1885; J2405

== ENCOUNTER 2024-10-26 07:54 | Inpatient (IN) | payer MEDICAID, SELFPAY ==
[2024-10-26] VITALS (86 sets, daily range): BP systolic 105–167; BP diastolic 49–96; PULSE 64–99; RESP 0–26; TEMP 36.4–37; O2SAT 91–97; BMI 33.0
--- NOTE | 2024-10-26 08:00 | DI.CT_ITS ---
Exam(s) CT ABDOMEN PELVIS W EXAM: CT ABDOMEN PELVIS W CLINICAL HISTORY: LLQ tender; hx diverticulitis TECHNIQUE: Imaging Protocol: Axial computed tomography images with coronal and sagittal reformatted images were created and reviewed. CONTRAST MATERIAL: Intravenous: Omnipaque 350 Contrast volume:100 mL Oral: No COMPARISON: CT CT ABDOMEN PELVIS W from 03/24/2023 FINDINGS: ABDOMEN: Lung Bases: No acute abnormality. Liver: Normal density. No suspicious hepatic masses are seen. There are 2 tiny hypodensities in the liver. They are too small for further characterization but likely reflect small cysts. Portal, Superior Mesenteric, and Splenic Veins: Unremarkable. Gallbladder and Biliary Tract: Question of 2 tiny gallstones. The gallbladder is incompletely disten ded limiting evaluation. No biliary ductal dilatation. Pancreas: Normal density, no abnormal calcifications or inflammatory process. Spleen: Normal. Adrenals: No masses seen. Kidneys: Normal size, contour and axis. No radiodense stones or obstructive uropathy. No masses seen. Abdominal Aorta: Abdominal portion non-dilated. Bowel: There is diverticulosis of the colon. There is bowel wall thickening seen in the mid sigmoid colon with pericolonic inflammation suspicious for acute diverticulitis. There is an adjacent 5.1 x 4.6 cm air-fluid collection to the right of the and superior to the inflamed bowel. The findings are suspicious for an abscess. A small component of the adjacent air may be extra luminal suggesting pe rforation. The patient appears to be status post appendectomy. No evidence of bowel obstruction is seen. No other bowel wall thickening is appreciated. The stomach is incompletely distended limiting evaluation. Peritoneal Cavity: No ascites, collection or mesenteric inflammatory response. Lymph Nodes: Mildly enlarged reactive lymph nodes are seen in the mesentery. Bones: Within normal limits for the patient's age. Soft Tissues: Unremarkable. PELVIS: Bladder: Symmetric distention, no gross wall thickening. Reproductive Organs: Unremarkable as visualized. Lymph Nodes: Within normal limits. Bones: Within normal limits for the patient's age. IMPRESSION: 1. Findings of acute sigmoid diverticulitis. Extra luminal air and fluid is seen superior and to the right of the inflamed bowel. This may represent an abscess or phlegmon. A portion of the air is ex traluminal and perforation is suggested. 2. Findings were discussed with Regan Marlow at 9:53 a.m. on 10/26/2024. RADIATION DOSE DELIVERED: 696.03mGy.cm Total DLP DATA REPOSITORY: All CT scans at this facility are submitted to the National Radiology Data Registry (NRDR) Dose Index Registry (DIR) with the [employer] (ACR). RADIATION OPTIMIZATION: All CT scans at this facility use at least one of these dose optimization te chniques: automated exposure control; mA and/or kV adjustment per patient size (includes targeted exa ms where dose is matched to clinical indication); or iterative reconstruction.
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
[2024-10-26 08:24] LABS: Lactate 0.7 mmol/L (0.6-1.4)
[2024-10-26 08:28] LABS: Abs Immature Grans 0.06 10^3/uL (0.0-0.06); Absolute Basophil Count 0.08 10^3/uL (0.0-0.2); Absolute Eosinophil Count 0.03 10^3/uL (0.0-0.7); Absolute Lymphocyte Count 1.44 10^3/uL (1.2-3.4); Absolute Monocyte Count 1.18 10^3/uL (0.1-0.8); Basophils % 0.5 %; Eosinophils % 0.2 %; HCT 48.4 % (40.0-50.0); HGB 17.1 g/dL (13.5-17.5); Immature Grans % 0.4 %; Lymphocytes % 8.5 %; MCH 28.4 pg (27.0-33.0); MCHC 35.3 % (32.0-36.0); MCV 80 fL (80-95); MPV 10.9 fL (8.0-11.0); Neutrophils % 83.4 %; Platelet Count 274 10^3/uL (130-400); RBC 6.02 10^6/uL (4.36-5.78); RDW 12.7 % (11.8-14.1); RDW-SD 36.8 fL; WBC 16.89 10^3/uL (4.4-10.8)
[2024-10-26 08:31] LABS: Absolute Neutrophil Count 14.09 10^3/uL (1.2-6.7)
[2024-10-26] MEDS: Ketorolac 15 MG/ML VIAL IVP (08:34)
[2024-10-26] MEDS: Prochlorperazine 10 MG/2 ML VIAL 5 MG IVP (08:35)
[2024-10-26] MEDS: ACETAMINOPHEN 1,000 MG/100 ML BAG 400 MG IVPB (08:36)
[2024-10-26 08:53] LABS: ALT 28 U/L (16-63); AST 13 U/L (15-37); Albumin 3.2 g/dL (3.4-5.0); Alkaline Phosphatase 73 U/L (46-116); Anion Gap 11.1 mmol/L (3-11); BUN 10 mg/dL (7-18); CO2 26.9 mmol/L (21.0-32.0); CREATININE 0.9 mg/dL (0.70-1.30); Calcium 9.1 mg/dL (8.5-10.1); Chloride 103 mmol/L (98-107); Estimated GFR 112.81 (mL/min/1.73m2); Glucose 123 mg/dL (74-106); Lipase 22 U/L (<78); Potassium 3.9 mmol/L (3.5-5.1); Sodium 141 mmol/L (136-145); Total Protein 8.5 g/dL (6.4-8.2)
[2024-10-26] MEDS: Normal Saline - Diluent 50 ML VIAL IJ (09:30)
[2024-10-26] MEDS: Omnipaque 350 MG/ML 100 ML BTL IJ (09:31)
[2024-10-26] MEDS: PIPERACILLIN/TAZO 4.5 GM in Normal Saline 100 ML IVPB (10:31)
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
[2024-10-26] MEDS: Lactated Ringers 1,000 ML 75 ML IV (15:18)
[2024-10-26] MEDS: Lactated Ringers 1,000 ML 30 ML IV (18:10)
[2024-10-26] MEDS: PIPERACILLIN/TAZO 3.375 GM in Normal Saline 50 ML IVPB (18:22)
[2024-10-26] MEDS: Enoxaparin 40 MG/0.4 ML SYR SC (18:40)
--- NOTE | 2024-10-26 20:03 | BOWEL_PTH ---
PATIENT: Del Harris LOC: [facility]#:[id number] AGE/SX: 39/M ROOM: RE10/26/[address]: Daniel Curiel MD : [id number] BED: A DIS: 10/29/2024 SPEC #: [id number] RECD: 10/27/24 13:08 STATUS: SOHAM RESayra #: [id number] GUY: 10/26/24 20:[address]: Daniel Curiel DEPT: Surgical Specimen RECD BY: Katina Saucedo ENTERED: 10/27/24 13:08 SP TYPE: Bowel OTHR DR: Eleonora Flores APRN Tissues: 1 - BOWEL RESECTION(OTHER) Procedures: GROSS AND MICRO LEVEL 5 Comments: [id number]
[2024-10-26] MEDS: Bupivacaine LIPOSOME/PF 133 MG/10 ML VIAL IJ (20:36)
[2024-10-26] MEDS: Bupivacaine 0.25% Pres-Free 30 ML VIAL (20:36)
[2024-10-26] MEDS: Normal Saline 20 ML VIAL (20:37)
--- NOTE | 2024-10-26 21:06 | ROE_ITS ---
Operative Note Operative Note PRE-OP DIAGNOSIS: Perforated diverticulitis POST-OP DIAGNOSIS: same PROCEDURE: Sigmoid colectomy with end colostomy (Lockhart's procedure) SURGEON: Daniel Curiel DYNAMICS AX DEVELOPER: Anival Harvey ANESTHESIA TYPE: Local By Surgeon and General LMA/ETT Refer to Anesthesia Record ESTIMATED BLOOD LOSS: 150 PATHOLOGY: other (Sigmoid colon) COMPLICATIONS: None Patient was transported to: PACU Patient's condition: stable Indications: Del is a 39-year-old male with worsening abdominal pain. He had a leukocytosis of 16,000, and underwent a CT scan that demonstrated perforated diverticulitis. Given his pain, and signs of sepsis, started on broad-spectrum antibiotics and brought to the operating room for sigmoid colectomy Findings: Perforated diverticulitis with mesenteric abscess Procedure Description: Del was brought back into the operating room, and assisted onto the OR table. He was padded and supported appropriately. General endotracheal anesthesia was initiated. Next, Correia urinary catheter was inserted in the usual fashion. The anterior abdominal wall was then prepped and draped. I anesthetized the skin around the umbilicus, made a small skin incision just cephalad of the umbilical stalk. 5 mm optical viewing port was then used to advance into the peritoneum under the direct vision of the laparoscope. Pneumoperitoneum was established and a 5 mm 30 degree scope was reintroduced through the port. The underlying viscera were examined. There were some filmy adhesions below the umbilicus from his previous surgery, but there was no evidence of any injury from entry into the peritoneum. I then turned my attention to the patient's right side as he was tilted towards his left. A right-sided tap block was performed with the vision of the laparoscope using local anesthetic mixed with Exparel. Patient was then rolled towards the right side, and a left-sided tap block was performed in the same fashion. He was brought back to level positioning, and a 5 mm port was then placed in the right mid abdomen with the assistance of the laparoscope. LigaSure was then used to dissect adhesions off the midline infraumbilical abdominal wall. Another 5 mm port was then placed in the suprapubic position. The patient was then placed in Trendelenburg positioning with the right side down. Greater omentum was lifted up out of the pelvis and retracted cephalad, the small bowel was swept up out of the pelvis. There were some adhesions to a loop of small intestine which were carefully dissected free. This was secondary to a large abscess cavity arising from the sigmoid mesentery. This tissue was quite friable and erythematous. I traced this back up towards the descending colon, and although I was able to find a portion of soft healthy colon here, it was quite difficult to dissect any of the mesentery because of his body habitus combined with extensive inflammation within the sigmoid mesentery from the abscess cavity. I could clearly see a distal target of the rectosigmoid junction that was suitable for a staple line, but since I did not feel confident mobilizing all of this laparoscopically given the distorted anatomy, at that point I elected to switch over to an open operation. The ports were removed, and the midline was opened from just above the umbilicus down towards the pubic symphysis. Once the peritoneal cavity was opened, the lateral attachments of the sigmoid mesentery were scored with the Bovie device, and the mesentery was mobilized towards the midline. Great care was taken to stay well away from the deep retroperitoneum to avoid any injury to those structures. Having gained a little bit of mobilization of the sigmoid, I then retracted the pathologic segment of colon along with the abscess cavity up out of the pelvis. This allowed me to score the pelvic floor and open the mesentery at the rectosigmoid junction. I then passed a TA stapler across the rectal stump, and stapled this closed. The colon was incised with a scalpel device, and the cut and was controlled with Allis clamps. The LigaSure device was then used to divide the sigmoid mesentery, again staying closer to the colon, but taking great care to them sure that we captured the entire abscess cavity. This dissection was carried up to the descending colon, and enough was mobilized to mature a colostomy. I then divided the proximal segment of the sigmoid colon with a ELMER stapler. This specimen was passed off the field as the sigmoid colon. The pelvis was irrigated and a tiny amount of bleeding from the sigmoid mesentery was controlled with a [id number] Vicryl stitch. The remainder of the pelvic floor was all clean and hemostatic. The rectal stump was marked with 0 Prolene sutures on each corner. I then turned my attention to creation of the colostomy site. Great care was taken to find an appropriate level to pass the end of the descending colon free. Once this was marked, circular portion of skin was excised, dissection was carried down to the fascia. The fascia was opened in a cruciate fashion, and the underlying muscle fibers were as the posterior fascia was opened in the same manner. The descending colon was then delivered up through the colostomy site taking great care to maintain appropriate orientation. This was allowed to sit at the skin level. It was tension-free, and appeared well-perfused. I turned my attention back to the peritoneum. Colon was quickly examined from the underside, and again everything looked well aligned. The small bowel was allowed to drop back into the pelvis as the patient was flattened. Again the pelvic floor was irrigated and all appeared clean. The small bowel was oriented appropriately, and I then closed the midline fascia with 2-0 PDS suture running from the top and bottom of the incision and meeting in the middle. The overlying skin and subcutaneous tissues were irrigated. The subcutaneous tissues were reapproximated with interrupted Vicryl stitches. The skin was closed with a surgical stapling device. The remaining 5 mm port in the right upper abdomen was irrigated and closed with a surgical stapler as well. We then applied a mehnaz negative pressure wound dressing according to the manufactures instructions next we turned our attention to maturation of the colostomy. The staple line was excised with the cautery device, and the colostomy was matured with interrupted Vicryl stitches. Mucosa appeared pink, well-perfused, and although there was just a tiny bit of dimpling of the external skin, it appeared to be tension-free overall. A colostomy device was applied. The patient was then allowed awaken from the anesthetic, and transferred to the recovery unit. Date of Procedure: 10/26/24
[2024-10-26] MEDS: Ondansetron 4 MG/2 ML VIAL IVP (21:49)
[2024-10-26] MEDS: HYDROmorphone 1 MG/ML SYR IVP (21:57)
--- NOTE | 2024-10-26 22:17 | W.ANESPOSTOP ---
Postoperative Evaluation Date, Time and Location Date Performed: 10/26/24 Time Performed: 22:17 Patient Location: PACU Vital Signs Most Recent Imported Vital Signs: Most Recent Vital Signs Temp Pulse Resp BP Pulse Ox 36.7 C 78 17 150/83 H 92 10/26/24 21:57 10/26/24 22:01 10/26/24 22:01 10/26/24 22:01 10/26/24 22:01 Pain Score Most Recent Pain Score: Most Recent Pain Score Pain Level 3 10/26/24 12:59 Assessment Mental Status: Awake (Alert & Oriented to Patient Baseline) Airway and Respiratory Function: Patent airway with normal (patient baseline) respiratory exam Cardiovascular Function: Hemodynamically Stable Hydration Status: Adequately Hydrated Nausea & Vomiting: Active Nausea or Vomiting Present Nausea and Vomiting Management: Other (reduced with medication. ) Pain: Pain is tolerable per patient Peripheral Nerve Block: Patient did not receive a nerve block
[2024-10-27 00:37] VITALS: BP 130/81; PULSE 67; RESP 14; TEMP 36.6; O2SAT 95
[2024-10-27] MEDS: PIPERACILLIN/TAZO 3.375 GM in Normal Saline 50 ML IVPB ×4 (00:40→17:39)
[2024-10-27] MEDS: ACETAMINOPHEN 1,000 MG/100 ML BAG 400 MG IVPB ×4 (01:13→20:35)
[2024-10-27 03:17] VITALS: BP 134/78; PULSE 74; RESP 18; TEMP 36.3; O2SAT 94
[2024-10-27] MEDS: Ondansetron 4 MG/2 ML VIAL IVP ×3 (05:59→15:36)
[2024-10-27 07:11] LABS: Abs Immature Grans 0.11 10^3/uL (0.0-0.06); Absolute Lymphocyte Count 1.29 10^3/uL (1.2-3.4); Absolute Neutrophil Count 16.04 10^3/uL (1.2-6.7); Basophils % 0.3 %; HCT 45.3 % (40.0-50.0); HGB 15.4 g/dL (13.5-17.5); Immature Grans % 0.6 %; MCH 28.2 pg (27.0-33.0); MCV 83 fL (80-95); MPV 11.3 fL (8.0-11.0); Monocytes % 4.9 %; Neutrophils % 87.2 %; Platelet Count 276 10^3/uL (130-400); RBC 5.47 10^6/uL (4.36-5.78); RDW 12.5 % (11.8-14.1); RDW-SD 38.1 fL; WBC 18.39 10^3/uL (4.4-10.8)
[2024-10-27 07:14] LABS: Absolute Basophil Count 0.06 10^3/uL (0.0-0.2)
[2024-10-27 07:30] LABS: Anion Gap 12.1 mmol/L (3-11); BUN 14 mg/dL (7-18); CO2 24.9 mmol/L (21.0-32.0); Calcium 8.8 mg/dL (8.5-10.1); Chloride 103 mmol/L (98-107); Estimated GFR 99.41 (mL/min/1.73m2); Glucose 136 mg/dL (74-106); Potassium 4.1 mmol/L (3.5-5.1); Sodium 140 mmol/L (136-145)
[2024-10-27 08:16] VITALS: BP 153/86; PULSE 77; RESP 15; O2SAT 93
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
[2024-10-27 14:59] VITALS: BP 156/96; PULSE 85; RESP 14; TEMP 36.9; O2SAT 95
--- NOTE | 2024-10-27 16:24 | CHAPLAIN ---
I had a brief visit with Del. He was resting in bed. He's in touch with family, and some family members have visited. I explained my role and offered support.
[2024-10-27 19:25] VITALS: BP 150/84; PULSE 72; RESP 16; TEMP 37.4; O2SAT 94
[2024-10-27] MEDS: Ketorolac 30 MG/ML VIAL IVP (23:29)
--- NOTE | 2024-10-27 23:48 | PGE_ITS ---
Date of Service Date of service: 10/27/24 Time of Service: 23:48 Assessment and Plan Assessment and plan (1) Diverticulitis of colon with perforation: Status: Acute Assessment and plan: POD #1 clears- ADAT encourage ambulation pulm toilet colostmy teaching labs reviewed bag changed. will need home health for supplies and teaching mult modality pain plan (2) Postoperative hematoma involving digestive system following digestive system procedure: Status: Acute (3) Tobacco abuse: Status: Acute Subjective Subjective Interval history since last seen: Patient is seen and examined: they are doing well. THey have : no headaches. No CP or SOB. no productive cough. no dysuria. no leg pain or swelling. The patient has been tolerating sips of clears. He started having stool from his ostomy tonight. They have been having a significant amount of trouble trying to keep the seal. He unfortunately has an inverted stoma on a crease so it has been very very difficult to keep the bag sealed and it is leaked multiple times throughout the day. He has not been up walking much. H is encouraged to do this. He stated he is not yet able to participate in changing/learning about the ostomy. Exam Narrative Exam Narrative: PHYSICAL EXAM GENERAL APPEARANCE: Alert, healthy appearance, oriented, x 3,? in no acute distress HYDRATION: Well hydrated HEAD, EYES, EARS, NECK, THROAT: Head is normocephalic, pupils equal, round, reactive to light and accommodation, ocular movement intact, sclera clear and no jaundice. ?Dentition-poor at baseline/ intact. No sore throat.? No jaw pain. No thrush LUNGS: normal respiration/normal chest excursion. ?Clear to auscultation bilaterally. ?No wheeze. ?HEART: Regular rate and rhythm. no murmurs EXTREMITY: No edema or cyanosis.? no leg pain, redness, swelling.? ABDOMEN: incision is c/d/i. change ostomy bag as it was leaking. ostomy is dusky but should be viable. it is retracted and on a creased which will make pouching challenging. Objective Last Vital Signs Temp 37.4 C 10/27/24 19:25 Pulse 72 10/27/24 19:25 Resp 16 10/27/24 19:25 BP 150/84 H 10/27/24 19:25 Pulse Ox 94 10/27/24 19:25 Laboratory Results - last 24 hr 10/27/24 06:38 WBC 18.39 H RBC 5.47 Hgb 15.4 Hct 45.3 MCV 83 MCH 28.2 MCHC 34.0 RDW 12.5 Plt Count 276 MPV 11.3 H Immature Gran % 0.6 Neutrophils % 87.2 Lymphocytes % 7.0 Monocytes % 4.9 Eosinophils % 0.0 Basophils % 0.3 Nucleated RBC % 0.0 Absolute Neutrophils 16.04 H Absolute Lymphocytes 1.29 Absolute Monocytes 0.90 H Absolute Eosinophils 0.00 Absolute Basophils 0.06 Sodium 140 Potassium 4.1 Chloride 103 Carbon Dioxide 24.9 Anion Gap 12.1 H BUN 14 Creatinine 1.0 Est GFR (CKD-EPI 2020) 99.41 Glucose 136 H Calcium 8.8 Time Spent with Patient Time Spent with Patient: 25-34 minutes Time was spent: preparing to see the patient(eg.review tests), obtaining and/or reviewing separately otained hiistory, ordering medications,tests, procedures, referring, communicating with other health urgent care physician assistant, indepentently interpreting results, counseling the patient, care coordination and other
[2024-10-28] MEDS: PIPERACILLIN/TAZO 3.375 GM in Normal Saline 50 ML IVPB ×2 (00:06→06:04)
[2024-10-28] MEDS: ACETAMINOPHEN 1,000 MG/100 ML BAG 400 MG IVPB ×3 (02:11→14:19)
[2024-10-28] MEDS: Ketorolac 30 MG/ML VIAL IVP ×3 (04:41→16:07)
[2024-10-28 07:38] LABS: Abs Immature Grans 0.05 10^3/uL (0.0-0.06); Absolute Basophil Count 0.07 10^3/uL (0.0-0.2); Absolute Monocyte Count 1.01 10^3/uL (0.1-0.8); Absolute Neutrophil Count 7.66 10^3/uL (1.2-6.7); Basophils % 0.6 %; Eosinophils % 1.3 %; HCT 40.1 % (40.0-50.0); HGB 13.9 g/dL (13.5-17.5); Immature Grans % 0.4 %; Lymphocytes % 20.1 %; MCH 28.3 pg (27.0-33.0); MCHC 34.7 % (32.0-36.0); MCV 82 fL (80-95); MPV 11.4 fL (8.0-11.0); Neutrophils % 68.6 %; Platelet Count 255 10^3/uL (130-400); RBC 4.92 10^6/uL (4.36-5.78); RDW 12.7 % (11.8-14.1); RDW-SD 37.6 fL; WBC 11.17 10^3/uL (4.4-10.8)
[2024-10-28 07:41] LABS: Absolute Eosinophil Count 0.15 10^3/uL (0.0-0.7); Absolute Lymphocyte Count 2.25 10^3/uL (1.2-3.4)
[2024-10-28 07:51] VITALS: BP 123/73; PULSE 67; RESP 18; TEMP 36.5; O2SAT 94
--- NOTE | 2024-10-28 08:09 | W.PM.PROGNOT ---
Date of Service Date of service: 10/28/24 Time of Service: 08:09 Assessment and Plan Assessment and plan (1) Diverticulitis of intestine with perforation and abscess: Status: Acute Assessment and plan: Del is doing well today. Waiting for pending lab results Will advance diet to soft, low fiber diet Strongly encouraged activity OOB, ambulation. Pain is well controlled at this time. Ostomy education. Strongly encouraged Del to participate in managing his ostomy which is vital for d/c Subjective Subjective Interval history since last seen: Del is feeling improved this morning. He is eager to be d/c home. His ostomy appliance was changed last night by Dr. Bashir and it held through the night. Exam Const General: cooperative, healthy appearing and comfortable Orientation: alert and oriented x3 Resp Effort & Inspection: normal respiratory effort, no audible wheezes and no cough GI Inspection: normal to inspection Palpation: soft, no guarding and tender Other: Colostomy in place. Liquid/soft brown stool noted in the bag Stoma is less swollen today. Objective Last Vital Signs Temp 36.5 C 10/28/24 07:51 Pulse 67 10/28/24 07:51 Resp 18 10/28/24 07:51 BP 123/73 10/28/24 07:51 Pulse Ox 94 10/28/24 07:51 Laboratory Results - last 24 hr 10/28/24 07:05 WBC 11.17 H RBC 4.92 Hgb 13.9 Hct 40.1 MCV 82 MCH 28.3 MCHC 34.7 RDW 12.7 Plt Count 255 MPV 11.4 H Immature Gran % 0.4 Neutrophils % 68.6 Lymphocytes % 20.1 Monocytes % 9.0 Eosinophils % 1.3 Basophils % 0.6 Nucleated RBC % 0.0 Absolute Neutrophils 7.66 H Absolute Lymphocytes 2.25 Absolute Monocytes 1.01 H Absolute Eosinophils 0.15 Absolute Basophils 0.07 Time Spent with Patient Time Spent with Patient: <25 minutes Time was spent: preparing to see the patient(eg.review tests), obtaining and/or reviewing separately otained hiistory and counseling the patient
[2024-10-28 08:13] LABS: Anion Gap 7.4 mmol/L (3-11); BUN 14 mg/dL (7-18); C-Reactive Protein 6.39 mg/dL (<or=0.5); CO2 27.6 mmol/L (21.0-32.0); CREATININE 1.1 mg/dL (0.70-1.30); Calcium 8.5 mg/dL (8.5-10.1); Chloride 105 mmol/L (98-107); Estimated GFR 88.67 (mL/min/1.73m2); Glucose 114 mg/dL (74-106); Potassium 3.7 mmol/L (3.5-5.1); Sodium 140 mmol/L (136-145)
[2024-10-28] MEDS: Normal Saline Flush 10 ML SYR IVP ×3 (14:19→22:26)
[2024-10-28 15:20] VITALS: BP 131/69; PULSE 64; RESP 18; TEMP 36.6; O2SAT 94
[2024-10-28] MEDS: Enoxaparin 40 MG/0.4 ML SYR SC (16:08)
--- NOTE | 2024-10-28 18:00 | PDOC.CMPRO ---
Date of service: 10/28/24 Time of Service: 13:15 Care Management Progress Note Progress Note Text Progress Note Text: Del was lying in the bed when CM met with him. He was pleasant to talk with. He stated that his colostomy should be reversed in 6-8 weeks, and he is just trying to take things 1 day at a time for now. Later in the day, CM was notified that Del was [place] for [place], with the help of [employer]. When CM went to relay the new, he was already aware. It will be effective from 10/09/24, so his entire stay will be billed to Medicaid. This was a huge relief. Discharge Potential Discharge Needs: PCP F/U Appt, Surgical F/U Appt and Other (ostomy supplies, teaching on caring for the ostomy. ) Anticipated Barriers to Discharge: None Identified Patient/Family Education Needs: Review discharge instructions, discuss Ask Me Three and Other (Ostomy care teaching. Del stated his significant other would also like to be present for the care teaching.) Plan: Anticipate that Del will be discharged home with new orders for HH RN. He will be given supplies to care for his ostomy until they can be ordered through home health. Del will f/u with his PCP and the surgeon and continue per his plan of care. He will transport home in a private vehicle with his partner. CM will continue to follow. SDOH(Care Management) Screening Will the Patient Participate in the Screening?: Yes Do you worry about having a steady place to live?: no In the past 12 months, have you had to go without electric, gas, oil or water in your home?: no Have you or anyone in your house had to go without enough food to eat?: no Has lack of transportation kept you from medical appointments or from doing things needed for daily living?: no Has anyone in your support network made you feel unsafe for any reason?: no Social Determinants of Health Comments(SDOH Details): none noted at this time Health Related Social Needs Health related social needs details: none at this time. Anticipated HH Services Anticipated HH Services at Discharge [facility] Services Needed (Home health for ostomy teaching and assessment.).
[2024-10-28 19:38] VITALS: BP 116/72; PULSE 80; RESP 18; TEMP 36.1; O2SAT 93
[2024-10-28 23:38] VITALS: BP 128/75; PULSE 70; RESP 17; TEMP 36; O2SAT 95
[2024-10-29 06:40] LABS: HCT 38.9 % (40.0-50.0); HGB 13.7 g/dL (13.5-17.5); MCH 28.5 pg (27.0-33.0); MCHC 35.2 % (32.0-36.0); MCV 81 fL (80-95); MPV 10.9 fL (8.0-11.0); Platelet Count 238 10^3/uL (130-400); RBC 4.81 10^6/uL (4.36-5.78); RDW 12.6 % (11.8-14.1); RDW-SD 36.9 fL; WBC 9.55 10^3/uL (4.4-10.8)
[2024-10-29 07:35] VITALS: BP 139/79; PULSE 76; RESP 15; TEMP 36.2; O2SAT 97
[2024-10-29] MEDS: Normal Saline Flush 10 ML SYR IVP (08:33)
[2024-10-29] MEDS: Lactobacillus Acidophilus CAP 1 CAP PO (08:34)
[2024-10-29] MEDS: Ondansetron 4 MG/2 ML VIAL IVP (08:34)
--- NOTE | 2024-10-29 10:27 | W.PM.PROGNOT ---
Date of Service Date of service: 10/29/24 Time of Service: 10:27 Assessment and Plan Assessment and plan (1) Diverticulitis of intestine with perforation and abscess: Status: Acute Assessment and plan: I provided Del some colostomy supplies, and we reviewed basic management techniques to help take care of it. He has an order placed to deliver more supplies to his house. I will have the office call him on Thursday to schedule a follow-up appointment in the office this upcoming week for removal of the mehnaz dressing, and likely some staple removal Subjective Subjective Interval history since last seen: Del is doing great today. He had a little bit of experience managing the colostomy device. He is tolerating food with no issues. He has been afebrile, and his white blood cell count is normalized Exam GI Other: Abdomen is soft and nondistended. Minimal tenderness. Mehnaz dressing looks great. Objective Last Vital Signs Temp 97.2 F L 10/29/24 07:35 Pulse 76 10/29/24 07:35 Resp 15 10/29/24 07:35 BP 139/79 10/29/24 07:35 Pulse Ox 97 10/29/24 07:35 Laboratory Results - last 24 hr 10/29/24 06:32 WBC 9.55 RBC 4.81 Hgb 13.7 Hct 38.9 L MCV 81 MCH 28.5 MCHC 35.2 RDW 12.6 Plt Count 238 MPV 10.9 Time Spent with Patient Time Spent with Patient: 25-34 minutes Time was spent: preparing to see the patient(eg.review tests), indepentently interpreting results, counseling the patient and care coordination
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
--- NOTE | 2024-10-29 17:29 | PDOC.CMDIS ---
Date of service: 10/29/24 Time of Service: 11:00 LACE Index Scoring Tool Questions: Length of Stay (in days): 3 Was the patient admitted via the E.D.?: Yes E.D. Visits: 1 Answers: Total Score: 7 Risk of Readmission: Low Risk Care Management Discharge Plan Reason for Hospitalization: Abdominal pain. He was found to have perforated diverticulitis, and is s/p sigmoid colectomy with creation of an end colostomy. Discharge Plan: Del was discharged home earlier today. Both he and his feel that they can competently care for the ostomy. They were taught care by both RN and the surgeon. Supplies were provided and were also ordered to be delivered to his home by the surgery team. Del declined the need for HH services today. Del will f/u with Dr. Curiel next week and his PCP within 1-2 weeks. He will continue prescribed plan of care. Del was transported home by his . Patient/Family Education Needs: Review of discharge instructions, ostomy care, limitations, activity, f/u plan and discuss Ask me 3. SDOH Health Related Social Needs: Health related social needs details none at this time. Health related social needs details: none at this time. Referrals and interventions: none at this time
== END 2024-10-29 13:41 | disposition home or self-care (01) | DRG 331 ==
LOC: ER 12:14 → MS 14:14
PROVIDERS: Surgery; Admitting Provider Surgery; Emergency Provider Physician Assistant; PCP Nurse Practitioner; Visit Provider Surgery
PROC: 0DTN4ZG Resection of Sigmoid Colon, Percutaneous Endoscopic Approach, Hand-Assisted (ICD-10-PCS; CPT 44204; principal; 2024-10-26 16:00)
DX: K57.20 Diverticulitis of large intestine with perforation and abscess without bleeding (principal); D72.829 Elevated white blood cell count, unspecified; Z53.31 Laparoscopic surgical procedure converted to open procedure; F17.210 Nicotine dependence, cigarettes, uncomplicated
CPT/HCPCS: 44143; 36415; 80048; 80053; 83690; 85027; 96365; 96366; 96367; 96375; 96376; 99285; J1650; 74177; 83605; 83735; 85025; 86140; 88307; C9290; G0378; J0131; J0665; J0780; J1100; J1885; J2405; J2543; J2704; J3475; J3490

== ENCOUNTER 2024-11-02 19:26 | Inpatient (IN) | payer MEDICAID, SELFPAY ==
[2024-11-02] VITALS (33 sets, daily range): BP systolic 105–144; BP diastolic 57–75; PULSE 77–105; RESP 14–23; TEMP 36.7; O2SAT 85–98
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
--- NOTE | 2024-11-02 19:49 | DI.CT_ITS ---
Exam(s) CT ABDOMEN PELVIS W EXAM: CT ABDOMEN PELVIS W CLINICAL HISTORY: bleeding at colostomy, abdominal hematoma formatio. TECHNIQUE: Imaging Protocol: Axial computed tomography images with coronal and sagittal reformatted images were created and reviewed CONTRAST MATERIAL: Intravenous: Omnipaque 350 Contrast volume:85 ml Oral: no COMPARISON: CT CT ABDOMEN PELVIS W from 10/26/2024 FINDINGS: ABDOMEN and PELVIS: Lung Bases: No acute findings. Liver: Mild hepatic steatosis. No suspicious mass. Gallbladder and biliary tract: No radiodense calculus. No biliary dilation. Pancreas: Normal density. No abnormal calcifications or inflammatory process. No evidence of mass. Spleen: Normal. Kidneys: Normal size, contour and axis. No radiodense stones. No obstructive uropathy. No suspicious masses seen. Adrenal glands: No masses seen. Vasculature: Abdominal aorta non-dilated. Soft tissues: Left lower quadrant colostomy now present. There is significant hematoma surrounding t he colostomy, greater to the left, lateral to the colostomy. This measures roughly 10 by 6 by 9 cm. Also stranding in the left-sided subcutaneous fat. No evidence of abscess. Midline lower anterior abdominal wall skin jesenia. There is asymmetry of the inferior rectus muscles which appears unchan ged from prior exam. No visible rectus hematoma. Bladder: No gross wall thickening. No calculi.No focal mass. Bowel: No obstruction. Left-sided colostomy now present. Mild edema in the portion of the colon at the colostomy site. This may be related to recent surgery. Appendix not visualized. Right lower q uadrant surgical clips. Peritoneal cavity: No ascites. No focal collection. No mesenteric inflammatory response. No free air . Bones: Unremarkable for age. Reproductive organs: Unremarkable. Lymph nodes: No pathologically enlarged lymph nodes. IMPRESSION:: Status post left colostomy. Significant hematoma surrounding the colostomy site. Mild edema of the colon at the colostomy site. Intra-abdominal bowel is unremarkable. RADIATION DOSE DELIVERED: 710.24mGy.cm Total DLP DATA REPOSITORY: All CT scans at this facility are submitted to the National Radiology Data Registry (NRDR) Dose Index Registry (DIR) with the [employer] (ACR). RADIATION OPTIMIZATION: All CT scans at this facility use at least one of these dose optimization te chniques: automated exposure control; mA and/or kV adjustment per patient size (includes targeted exa ms where dose is matched to clinical indication); or iterative reconstruction.
[2024-11-02 20:01] LABS: Abs Immature Grans 0.18 10^3/uL (0.0-0.06); Absolute Basophil Count 0.09 10^3/uL (0.0-0.2); Absolute Eosinophil Count 0.23 10^3/uL (0.0-0.7); Basophils % 0.5 %; Eosinophils % 1.3 %; HCT 41.6 % (40.0-50.0); HGB 14.1 g/dL (13.5-17.5); Lymphocytes % 13.4 %; MCH 28.1 pg (27.0-33.0); MCHC 33.9 % (32.0-36.0); MCV 83 fL (80-95); MPV 10.9 fL (8.0-11.0); Monocytes % 5.3 %; Neutrophils % 78.5 %; Platelet Count 325 10^3/uL (130-400); RBC 5.02 10^6/uL (4.36-5.78); RDW 13.2 % (11.8-14.1); RDW-SD 39.4 fL
[2024-11-02 20:02] LABS: Absolute Lymphocyte Count 2.33 10^3/uL (1.2-3.4); Absolute Monocyte Count 0.92 10^3/uL (0.1-0.8); Absolute Neutrophil Count 13.66 10^3/uL (1.2-6.7)
[2024-11-02 20:18] LABS: PTT Activated 24.8 sec (23.6-32.8); Prothrombin Time 9.8 sec (9.1-11.1)
[2024-11-02 20:19] LABS: ALT 46 U/L (16-63); AST 18 U/L (15-37); Albumin 3.2 g/dL (3.4-5.0); Alkaline Phosphatase 63 U/L (46-116); Anion Gap 8.6 mmol/L (3-11); BUN 12 mg/dL (7-18); Bilirubin, Total 0.37 mg/dL (0.2-1.0); CO2 28.4 mmol/L (21.0-32.0); CREATININE 0.9 mg/dL (0.70-1.30); Chloride 105 mmol/L (98-107); Estimated GFR 112.81 (mL/min/1.73m2); Glucose 128 mg/dL (74-106); Lipase 38 U/L (<78); Potassium 4.1 mmol/L (3.5-5.1); Sodium 142 mmol/L (136-145); Total Protein 7.6 g/dL (6.4-8.2)
[2024-11-02 20:24] LABS: Calcium 9.2 mg/dL (8.5-10.1)
[2024-11-02] MEDS: Normal Saline - Diluent 50 ML VIAL IJ (20:34)
[2024-11-02] MEDS: Omnipaque 350 MG/ML 100 ML BTL IJ (20:35)
[2024-11-02] MEDS: Normal Saline 1,000 ML 1000 ML IV (20:46)
[2024-11-02] MEDS: PIPERACILLIN/TAZO 4.5 GM in Normal Saline 100 ML IVPB (20:47)
--- NOTE | 2024-11-02 21:14 | DI.VRAD_ITS ---
PROCEDURE INFORMATION: Exam: CT Abdomen And Pelvis With Contrast Exam date and time: 11/02/2024 20:39 Age: 39 years old Clinical indication: Other: Bleeding at colostomy, abdominal hematoma formatio TECHNIQUE: Imaging protocol: Computed tomography of the abdomen and pelvis with contrast. Contrast material: 350; Contrast volume: 85 ml; Contrast route: INTRAVENOUS (IV); COMPARISON: CT ABDOMEN PELVIS W 10/26/2024 09:22 FINDINGS: Liver: Fatty liver with no mass lesions. Gallbladder and biliary ducts: No calcified stones. No gross ductal dilation. Pancreas: No ductal dilation. No mass . Spleen: No splenomegaly or suspicious lesions. Adrenal glands: No suspicious mass. Kidneys and ureters: No hydronephrosis. No masses. Stomach and bowel: Sigmoid colon resection since prior. Lockhart pouch appears satisfactory. Submucosal fat deposition in the colon, likely habitus and or diet related. No colonic or small bowel obstruction. No enteritis. Descending colostomy new since prior; mild wall thickening of the colon within the ostomy. 8 x 8 x 8 cm hematoma within the colostomy, surrounding the:. Scattered mild densities in the left abdominal wall surrounding the ostomy, compatible with recent formation. Moderate edema in the left flank subcutaneous fat. Midline skin jesenia. Appendix: No evidence of appendicitis. Intraperitoneal space: No intraperitoneal hemorrhage. No intraperitoneal gas or abscess. Vasculature: No abdominal aortic aneurysm. Lymph nodes: No significantly enlarged lymph nodes. Urinary bladder: No gross wall thickening. Reproductive: Unremarkable as visualized. Bones/joints: Normal variant anterior superior L5 endplate. No acute fracture or subluxation. Soft tissues: See Stomach and bowel finding. IMPRESSION: 1. Descending colostomy new since prior; mild colitis of the colon within the ostomy. 2. 8 x 8 x 8 cm hematoma within the colostomy, surrounding the colon. 3. Additional findings as described. Dictated and Authenticated by: Tori Mijares MD. Ordering:DELFIN Spears MD
[2024-11-02 21:26] LABS: Procalcitonin < 0.10 ng/mL
--- NOTE | 2024-11-02 21:57 | W.PM.PROGNOT ---
Date of Service Date of service: 11/02/24 Time of Service: 21:58 Assessment and Plan Assessment and plan (1) Diverticulitis of colon with perforation: Status: Acute (2) Postoperative hematoma involving digestive system following digestive system procedure: Status: Acute (3) Stomal bleeding: Status: Acute (4) Tobacco abuse: Status: Acute Subjective Subjective Interval history since last seen: Pt came in the ED w/ bleeding from stoma and lg flank hematoma. Pt was tachycardic and hypotensive in ED. See labs and CT in [facility] CT show this to be a hematoma and not abscess. We will see how labs respond w/ hydration. Will start prophylactic abx. repeat labs in am Objective Last Vital Signs Temp 36.7 C 11/02/24 19:29 Pulse 90 11/02/24 21:00 Resp 17 11/02/24 21:01 BP 129/60 11/02/24 21:00 Pulse Ox 96 11/02/24 21:01 Laboratory Results - last 24 hr 11/02/24 11/02/24 19:55 20:38 WBC 17.40 H RBC 5.02 Hgb 14.1 Hct 41.6 MCV 83 MCH 28.1 MCHC 33.9 RDW 13.2 Plt Count 325 MPV 10.9 Immature Gran % 1.0 Neutrophils % 78.5 Lymphocytes % 13.4 Monocytes % 5.3 Eosinophils % 1.3 Basophils % 0.5 Nucleated RBC % 0.0 Absolute Neutrophils 13.66 H Absolute Lymphocytes 2.33 Absolute Monocytes 0.92 H Absolute Eosinophils 0.23 Absolute Basophils 0.09 PT 9.8 INR 1.0 APTT 24.8 VBG Lactate 1.0 Sodium 142 Potassium 4.1 Chloride 105 Carbon Dioxide 28.4 Anion Gap 8.6 BUN 12 Creatinine 0.9 Est GFR (CKD-EPI 2020) 112.81 Glucose 128 H Calcium 9.2 Total Bilirubin 0.37 AST 18 ALT 46 Alkaline Phosphatase 63 Total Protein 7.6 Albumin 3.2 L Lipase 38 Procalcitonin < 0.10 ABO/Rh A Positive Antibody Screen NEGATIVE Time Spent with Patient Time Spent with Patient: 25-34 minutes Time was spent: preparing to see the patient(eg.review tests), ordering medications,tests, procedures, referring, communicating with other health spiritual care coordinator, indepentently interpreting results, care coordination and other
--- NOTE | 2024-11-02 23:45 | NUR.NOTE ---
While atempting to admit pt , nursing transformer assembly supervisor called and asked if pt's automotive porter was in the room. She was sitting in a recliner beside pts bed and stated that she was planning on spending the night. she had already been told by the transformer assembly supervisor that this was against hospital rules when they were in the ED. Spoke with transformer assembly supervisor on phone and told her that automotive porter was planning oin spending the night. Nursing transformer assembly supervisor Shahrzad then came to floor with security to escort automotive porter out. Pt became irate, swearing, pulled out his own IV and monitor leads and stormed out the door , swearing at everyone. Dr Bashir aware of events.
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
== END 2024-11-02 23:55 | disposition left against medical advice (07) | DRG 394 ==
LOC: ER 21:26 → ICU 23:12
PROVIDERS: Admitting Provider Surgery; Emergency Provider Physician Assistant; PCP Nurse Practitioner; Visit Provider Surgery
DX: K94.01 Colostomy hemorrhage (principal); L76.32 Postprocedural hematoma of skin and subcutaneous tissue following other procedure; F17.210 Nicotine dependence, cigarettes, uncomplicated; I95.9 Hypotension, unspecified; R00.0 Tachycardia, unspecified; Y83.8 Other surgical procedures as the cause of abnormal reaction of the patient, or of later complication, without mention of misadventure at the time of the procedure
CPT/HCPCS: 36415; 80048; 80053; 83690; 84145; 86850; 86900; 86901; 87040; 96365; 99285; 74177; 83605; 83735; 85025; 85610; 85730; 86140; J2543; J3490

== ENCOUNTER 2024-11-03 16:23 | Outpatient (CLI) | payer MEDICAID, SELFPAY ==
[2024-11-03 12:00] LABS: Absolute Basophil Count 0.07 10^3/uL (0.0-0.2); Absolute Eosinophil Count 0.26 10^3/uL (0.0-0.7); Absolute Lymphocyte Count 2.31 10^3/uL (1.2-3.4); Absolute Neutrophil Count 10.61 10^3/uL (1.2-6.7); Basophils % 0.5 %; Eosinophils % 1.8 %; HCT 41.1 % (40.0-50.0); HGB 14.1 g/dL (13.5-17.5); Immature Grans % 0.7 %; MCH 28.4 pg (27.0-33.0); MCHC 34.3 % (32.0-36.0); MCV 83 fL (80-95); MPV 10.6 fL (8.0-11.0); Monocytes % 7.4 %; Neutrophils % 73.6 %; Platelet Count 303 10^3/uL (130-400); RBC 4.97 10^6/uL (4.36-5.78); RDW 13.5 % (11.8-14.1); RDW-SD 39.8 fL; WBC 14.41 10^3/uL (4.4-10.8)
[2024-11-03 12:04] LABS: Absolute Monocyte Count 1.07 10^3/uL (0.1-0.8)
[2024-11-03 12:50] LABS: C-Reactive Protein 3.35 mg/dL (<or=0.5); Ferritin 160 ng/mL (26-388); Folate 4.3 ng/mL (8.6-20.0); Procalcitonin < 0.10 ng/mL; Vitamin B12 399 pg/mL (193-986)
== END 2024-11-03 16:24 | disposition home or self-care (01) ==
LOC: LBO 16:24
PROVIDERS: PCP Nurse Practitioner; Visit Provider Surgery
DX: K57.20 Diverticulitis of large intestine with perforation and abscess without bleeding (principal); K91.870 Postprocedural hematoma of a digestive system organ or structure following a digestive system procedure; Z72.0 Tobacco use
CPT/HCPCS: 36415; 84145; 82607; 82728; 82746; 85025; 86140

== ENCOUNTER 2025-02-14 05:56 | Inpatient (IN) | payer MEDICAID, SELFPAY ==
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
--- NOTE | 2025-02-13 16:35 | ROE_ITS ---
Operative Note Operative Note PRE-OP DIAGNOSIS: Colostomy in place POST-OP DIAGNOSIS: same PROCEDURE: Open takedown of skin level colostomy, and restorative colorectal anastomosis SURGEON: Daniel Curiel ASSISTING SURGEON: Jonel Chaidez [employer] CONCRET[employer]ODU[employer] INSTALLER: Magdalene Larson ANESTHESIA TYPE: Local By Surgeon and General LMA/ETT Refer to Anesthesia Record ESTIMATED BLOOD LOSS: 200 PATHOLOGY: none sent COMPLICATIONS: Other (Anastomotic leak which was revised) Patient was transported to: PACU Patient's condition: stable Indications: Del is a 40-year-old male who underwent sigmoid colectomy and Lockhart's procedure for perforated diverticulitis. He made nice recovery, and he is here for takedown of his colostomy, and episcopalian of GI continuity Procedure Description: I met with Del in the day surgery unit, we reviewed the plan for surgery. Next, he was brought back to the operating room. He was moved onto the OR table, and great care was taken to ensure that he was comfortable prior to the initiation of anesthesia. General endotracheal anesthesia was then started. Correia urinary catheter was inserted using aseptic technique. Del was then placed in lithotomy positioning, again, with great care and attention to appropriate padding and supporting. The colostomy device was removed, the surrounding skin was cleaned. It was prepped, gauze dressing was placed over the stoma, and this was sealed with occlusive dressings. The full anterior abdominal wall was then prepped and draped. I made a midline incision, taking care to excise the previous scar. The incision did have to be extended cephalad a bit for mobilization of the left colon. I gained access to the peritoneum, and opened it along the length of the incision. Some adhesions to the anterior abdominal wall were divided. I began with a brief survey of the pelvis. There were minimal adhesions here. The Prolene sutures marking the rectal stump were easily identified. The left and right sides of the rectal mesentery were scored, and the dissection was carried down onto the upper portion of the rectum proper. Some of this tissue was still a bit dense, so it was mobilized down onto normal and healthy appearing rectum. Once this was complete, I turned my attention to the colostomy takedown. Dressing mentioned above was removed, and a silk suture was used to close the skin level of the colostomy to prevent any spillage. I incised around the colostomy including the mucocutaneous border back to normal healthy skin. I dissected down to the subcutaneous fat and down to the fascial edge. The colostomy was mobilized circumferentially. I then turned my attention to the underside of the colostomy, and the peritoneum was scored and bluntly dissected clean. This allowed me to deliver the colostomy down through the anterior abdominal wall back into the peritoneal cavity. Next, I mobilized the descending portion of the colon. Some of this was already done from the previous resection, but I did carry it up and around the splenic flexure. With the dissection up to the spleen, I turned my attention to the mid transverse colon. There was abundant omentum, and this was divided to the midportion of the transverse colon. This allowed me to reflect the greater omentum off of the antimesenteric border of the transverse colon, lifting the stomach upwards. The mid transverse colon mesentery was identified, and the peritoneal aspect was scored as the dissection was carried over to the splenic flexure. With the mid transverse colon mobilized down, there was more than enough length for a tension-free anastomosis. I the descending colon at a part that felt relatively healthy. It is worth mentioning that the patient does have pandiverticulosis involving all segments of the colon. The anvil of an 30 mm EEA stapler was delivered into the descending colon, and pursestring in place. I then turned my attention back to the rectal stump. A TA stapler was used to divide this. Next, digital rectal exam was performed. It felt normal. A 30 mm EEA stapler was then advanced through the anus and into the rectum, and brought up to the end of the rectal stump. The affixing device was advanced through this under direct vision, and the anvil was affixed. The colon was brought down onto the rectum, and the EEA stapler was fired. It was then removed. The rings were suboptimal, and unfortunately, there was some leakage of air from the anastomosis. It was carefully examined, and it appeared to be from the posterior wall. At this point, I asked Dr. Chaidez to join us in the operating room, and after careful consideration of multiple options, I felt the safest thing to do is to takedown this anastomosis and revise it formally. I encircled just proximal to the anastomosis with my hands, and divided the descending colon using electrocautery. This was reflected upwards, and away from the field. It appeared that there was a small tear from some thickened tissue on the posterior aspect of the rectum. Since there was still plenty of length on the rectal stump, I mobilized this a bit more. The left and right sides of the mesorectum were scored close to the rectum to avoid any iatrogenic injury, and the mesorectum was divided with the LigaSure device. An Endo ELMER stapler was used to divide the midportion of the rectum at soft healthy tissue. With the old anastomosis removed, a new 30 mm anvil was inserted into the proximal portion, and again affixed in place with a pursestring suture. Some glucagon was given intravenously to relax the colon wall. Another EEA stapler was advanced up into the new rectal stump, and again the affixing device was advanced. The anvil was attached, and a new anastomosis was created as previously described, taking great care to ensure that it was properly aligned. The EEA stapler was fired and removed. This revealed 2 healthy and complete tissue rings. This new anastomosis was tested, and was airtight. the anastomosis appeared well-perfused, was not under any tension. The pelvis was irrigated clean. There was not any significant spillage during the procedure, but since this anastomosis was revised, I felt like leaving a drain in the pelvis was probably a reasonable course of action. A Efrem drain was delivered through the right lower quadrant abdominal wall, and left down in the pelvis adjacent to the anastomosis. I then ran the length of the small intestine assuring that it was normally oriented. Next, I turned my attention to closure of the previous colostomy site. The posterior fascia was approximated with 2-0 PDS suture from the underside. The old site was irrigated clean. It was hemostatic. The anterior fascia was reapproximated with 2-0 PDS suture as well. Because Mr. Harris is a relatively thick abdominal wall, some of the deep subcutaneous tissues were reapproximated with interrupted Vicryl sutures. Iodoform gauze was used to pack the stoma site. Midline wound was closed with 2-0 PDS at the fascial level, and similar to the colostomy site, some of the subcutaneous tissue was reapproximated with interrupted Vicryl's. The wound was irrigated between closure layers. The midline incision was closed with surgical stapler. Bandages were applied, and the Correia catheter was removed. The patient was then awoken from anesthesia, transferred to the recovery unit. Date of Procedure: 02/14/25
[2025-02-14] VITALS (44 sets, daily range): BP systolic 133–164; BP diastolic 67–101; PULSE 76–112; RESP 14–31; TEMP 36.4–37.4; O2SAT 86–97; BMI 37.8
[2025-02-14] MEDS: Celecoxib 200 MG CAP PO (06:22)
[2025-02-14] MEDS: Acetaminophen 500 MG TAB 1000 MG PO (06:22)
[2025-02-14] MEDS: Gabapentin 300 MG CAP 600 MG PO (06:22)
[2025-02-14] MEDS: Lactated Ringers 1,000 ML 80 ML IV ×3 (06:39→19:31)
[2025-02-14] MEDS: Heparin 5,000 UNITS/ML VIAL 5000 UNITS SC (06:56)
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
[2025-02-14] MEDS: ceFAZolin 2 GM/50 ML BAG IVPB ×2 (07:34→16:32)
[2025-02-14] MEDS: Bupivacaine 0.25% Pres-Free 30 ML VIAL (08:18)
[2025-02-14] MEDS: Normal Saline 20 ML VIAL (08:18)
[2025-02-14] MEDS: Bupivacaine LIPOSOME/PF 133 MG/10 ML VIAL IJ (08:18)
[2025-02-14] MEDS: Water,Injection,Sterile 10 ML VIAL (12:24)
[2025-02-14] MEDS: Glucagon 1 MG VIAL (12:24)
--- NOTE | 2025-02-14 15:49 | PHA.REVIEW2 ---
Pharmacy Admission Review Admission Clinical Review Admission Pharmacy Review: No Known Allergies Allergy (Verified 02/14/25 06:11) Resuscitation Status Full Code Height 5 ft 8 in Weight 112.7 kg Comments Comments/Follow Ups: POD#0 Open takedown of skin level colostomy, and restorative colorectal anastomosis Pharmacy Admission Review Renal Dosing Medications needing adjustments: Reviewed (CrCl 135.5 mL/min) List of meds needing interventions: Current medications are okay Anticoagulation DVT Prophylaxis: Reviewed Medications: Enoxaparin (40mg daily) Opiate Usage Evaluate Pain Scale/Pains Meds: Reviewed (hydromorphone 2mg IVP q3h PRN - no doses given) Scheduled Bowel Reg ordered if on Opiates?: Yes (docusate) Relevant Labs Electrolytes, C-Reactive P, ESR: Reviewed (No labs for today) Cardiac Review Cardiac Review: Blood Pressure : Heart Rate 140/96 : 105 1540 Blood Pressure : Heart Rate 145/86 : 102 1526 Blood Pressure : Heart Rate 150/90 : 104 1521 Blood Pressure : Heart Rate 141/88 : 103 1516 Blood Pressure : Heart Rate 149/88 : 108 1511 Blood Pressure : Heart Rate 139/89 : 106 1506 Blood Pressure : Heart Rate 142/78 : 106 1500 Blood Pressure : Heart Rate 147/91 : 104 1455 Blood Pressure : Heart Rate 133/89 : 103 1450 BP, HR, EF%: Reviewed (oxygen flow rate 2) QTc Review QTc: Reviewed (No EKG on file) IV to PO Switch IV Medications: Reviewed (acetaminophen, hydromorphone and ondansetron) Home Meds Home Med List reviewed: Reviewed Current Meds Current Medication Order Review: Intervened Comments: Discontinued preop orders - completed Pharmacy Antibiotic Review Relevant Labs: Temperature 36.7 C Temperature 36.8 C Temperature 36.8 C Temperature 36.7 C Temperature 36.7 C Temperature 36.6 C Temperature 36.5 C Temperature 36.4 C Pharmacy Antibiotic Activity: Reviewed, no change Comments: Patient is on Augmentin PO postop Comments Comments/Follow Ups: POD#0 Open takedown of skin level colostomy, and restorative colorectal anastomosis
[2025-02-14] MEDS: ACETAMINOPHEN 1,000 MG/100 ML BAG 400 MG IVPB ×2 (16:01→19:31)
--- NOTE | 2025-02-14 16:22 | NUR.NOTE ---
bedside report received by Isabel Coelho RN in PACU, pt Axox4 but sleepy, 2L nc placed while sleeping on unit due to drowsiness, easily arousable to voice. midline abd incision C/D/I, shadowing to LLQ dsg with gauze/tegader, serosanguinous drainage. ROSIE site C/D/I, emptied for 20cc bloody output and put to bulb suction. DTV 2150, condom cath setup in place due to drowsiness. Pt tolerating clear liquids, MD Curiel at bedside post op to check in with pt, notified pt says he can't tolerate swallowing pills, need order change for docusate due to capsule, miralax will be ordered per MD Curiel. Patient resting in bed, bed low/locked, call mata in reach, bed alarm on, oriented to room/staff, post op vitals stable, denies pain at this time, IV tylenol infusing, IVF infusing. Girlfriend Lois at bedside. Nursing Note:
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
--- NOTE | 2025-02-14 16:36 | W.ANESPOSTOP ---
Postoperative Evaluation Date, Time and Location Date Performed: 02/14/25 Time Performed: 16:37 Patient Location: Med/Surg Vital Signs Most Recent Imported Vital Signs: Most Recent Vital Signs Temp Pulse Resp BP Pulse Ox 37.1 C 100 H 20 149/89 H 95 02/14/25 16:11 02/14/25 16:11 02/14/25 16:11 02/14/25 16:11 02/14/25 16:11 Pain Score Most Recent Pain Score: Most Recent Pain Score Pain Level 0 02/14/25 15:18 Assessment Mental Status: Awake (Alert & Oriented to Patient Baseline) Airway and Respiratory Function: Patent airway with normal (patient baseline) respiratory exam Cardiovascular Function: Hemodynamically Stable Hydration Status: Adequately Hydrated Nausea & Vomiting: No Nausea or Vomiting Pain: Pain is tolerable per patient Peripheral Nerve Block: Patient did not receive a nerve block
[2025-02-14] MEDS: Enoxaparin 40 MG/0.4 ML SYR SC (17:13)
[2025-02-14] MEDS: Polyethylene Glycol 3350 17 GM PACKET PO (19:32)
[2025-02-15] MEDS: ACETAMINOPHEN 1,000 MG/100 ML BAG 400 MG IVPB ×4 (01:58→22:03)
[2025-02-15] MEDS: Ondansetron 4 MG/2 ML VIAL IVP (02:21)
[2025-02-15 06:47] LABS: HCT 47.6 % (40.0-50.0); HGB 16.5 g/dL (13.5-17.5); MCH 27.7 pg (27.0-33.0); MCHC 34.7 % (32.0-36.0); MCV 80 fL (80-95); MPV 11.6 fL (8.0-11.0); Platelet Count 234 10^3/uL (130-400); RBC 5.96 10^6/uL (4.36-5.78); RDW 14.1 % (11.8-14.1); RDW-SD 40.5 fL; WBC 14.93 10^3/uL (4.4-10.8)
[2025-02-15 07:02] LABS: Anion Gap 7.8 mmol/L (3-11); BUN 12 mg/dL (7-18); CO2 26.2 mmol/L (21.0-32.0); CREATININE 1.1 mg/dL (0.70-1.30); Calcium 8.6 mg/dL (8.5-10.1); Chloride 104 mmol/L (98-107); Estimated GFR 88.12 (mL/min/1.73m2); Glucose 150 mg/dL (74-106); Potassium 3.9 mmol/L (3.5-5.1); Sodium 138 mmol/L (136-145)
--- NOTE | 2025-02-15 07:45 | W.PM.PROGNOT ---
Date of Service Date of service: 02/15/25 Time of Service: 07:45 Assessment and Plan Assessment and plan (1) S/P exploratory laparotomy: Status: Acute Assessment and plan: 40-year-old man is postop day 1 from colostomy reversal. He is hemodynamically stable. His abdominal exam is very reassuring and grossly benign. Drain output is scant. Hemoglobin is stable. No concerns for bleeding despite the sanguinous output of the drain. Overall he looks really good. Plan: Hep-Lock IV fluid DVT prophylaxis Out of bed and ambulate Await better bowel function Analgesia as needed Subjective Subjective Interval history since last seen: no issues overnight. He denies any significant pain. No gas yet but no nausea and no vomiting. He is tolerating his diet. Pain adequately controlled. Urinating well. Not significantly thirsty. Exam Narrative Exam Narrative: Gen: Non-toxic, comfortable and interactive Neuro: Alert and oriented x3 Psych: Good mood and affect. Good insight and understanding into condition. Chest: Non-labored breathing, no wheezing, no visible shortness of breath. Heart: Regular Abdomen: Soft, nondistended, no significant tenderness anywhere. Even his incisions do not seem very tender. Dressings are stained but dry and intact. The ROSIE drain has some scant sanguinous output. Objective Last Vital Signs Temp 99.3 F 02/14/25 19:12 Pulse 99 H 02/14/25 19:12 Resp 18 02/14/25 19:12 BP 146/101 H 02/14/25 19:12 Pulse Ox 93 02/14/25 19:12 Laboratory Results - last 24 hr 02/15/25 06:26 WBC 14.93 H RBC 5.96 H Hgb 16.5 Hct 47.6 MCV 80 MCH 27.7 MCHC 34.7 RDW 14.1 Plt Count 234 MPV 11.6 H Sodium 138 Potassium 3.9 Chloride 104 Carbon Dioxide 26.2 Anion Gap 7.8 BUN 12 Creatinine 1.1 Est GFR (CKD-EPI 2020) 88.12 Glucose 150 H Calcium 8.6 Time Spent with Patient Time Spent with Patient: 25-34 minutes Time was spent: preparing to see the patient(eg.review tests), obtaining and/or reviewing separately otained hiistory, indepentently interpreting results, counseling the patient and care coordination
[2025-02-15 07:52] VITALS: BP 150/89; PULSE 100; RESP 18; TEMP 37.2; O2SAT 93
--- NOTE | 2025-02-15 08:21 | W.PM.PROGNOT ---
Date of Service Date of service: 02/15/25 Time of Service: 08:21 Assessment and Plan Assessment and plan (1) S/P exploratory laparotomy: Status: Acute Assessment and plan: Overall, I think Del is doing quite well after colostomy reversal. I have encouraged him to get up and move around a little bit today as best he can. The drain is certainly bloody, but there was a fair amount of pelvic dissection, so I am not surprised by that. 's hemoglobin is fine today, and his hemodynamics are all very reassuring. Will keep an eye on it over the next day, and reassess the hemoglobin tomorrow. Subjective Subjective Interval history since last seen: Del feels very good today. He is tolerating some liquids, and already ate this morning. Abdominal pain is well-controlled. He has not had any flatus or bowel movement yet, but he is voiding without any difficulty. Exam GI Other: Abdomen soft and not at all distended. Does have some bowel sounds. Surgical drain is fairly bloody, but relatively low output. Objective Last Vital Signs Temp 99.0 F 02/15/25 07:52 Pulse 100 H 02/15/25 07:52 Resp 18 02/15/25 07:52 BP 150/89 H 02/15/25 07:52 Pulse Ox 93 02/15/25 07:52 Laboratory Results - last 24 hr 02/15/25 06:26 WBC 14.93 H RBC 5.96 H Hgb 16.5 Hct 47.6 MCV 80 MCH 27.7 MCHC 34.7 RDW 14.1 Plt Count 234 MPV 11.6 H Sodium 138 Potassium 3.9 Chloride 104 Carbon Dioxide 26.2 Anion Gap 7.8 BUN 12 Creatinine 1.1 Est GFR (CKD-EPI 2020) 88.12 Glucose 150 H Calcium 8.6 Time Spent with Patient Time Spent with Patient: <25 minutes Time was spent: preparing to see the patient(eg.review tests), indepentently interpreting results and counseling the patient
[2025-02-15] MEDS: Polyethylene Glycol 3350 17 GM PACKET PO ×2 (09:56→20:06)
[2025-02-15] MEDS: Normal Saline Flush 10 ML SYR IVP ×2 (09:56→16:09)
--- NOTE | 2025-02-15 11:13 | W.NUTRFU ---
Date of service: 02/15/25 Time of Service: 11:13 Nutrition Note NOTE: visited with Del who is s/p colostomy reversal surgery. Assigned post-op diet and offered education to this. was not hungry at breakfast and did not eat the eggs and toast but says he should be ready for lunch shortly. Pt with no questions or desire for any nutrition follow up in the outpatient setting at this time. LAbs unremarkable for nutrition related concerns. Denies sig wt changes. NKFA. will continue to monitor po intake and will remain available for diet education Time Spent in Nutritional Counseling and Treatment: 5 min
[2025-02-15] MEDS: HYDROmorphone 2 MG/ML SYR IVP (14:20)
[2025-02-15] MEDS: Normal Saline Flush 10 ML SYR IV (14:20)
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
[2025-02-15 15:31] VITALS: BP 134/85; PULSE 103; RESP 17; TEMP 36.1; O2SAT 93
--- NOTE | 2025-02-15 16:06 | CHAPLAIN ---
Del was relaxing in recliner when I visited. I explained my role and offered support. He wad not interested in further conversation. He's in touch with family and doing fine, he said.
[2025-02-15] MEDS: Enoxaparin 40 MG/0.4 ML SYR SC (18:09)
[2025-02-15 20:02] VITALS: BP 159/86; PULSE 107; RESP 20; TEMP 36.7; O2SAT 90
[2025-02-16] MEDS: Ondansetron 4 MG/2 ML VIAL IVP (03:20)
[2025-02-16] MEDS: ACETAMINOPHEN 1,000 MG/100 ML BAG 400 MG IVPB ×3 (03:23→16:05)
[2025-02-16 05:27] VITALS: BP 181/96; PULSE 110; RESP 20; TEMP 36; O2SAT 92
[2025-02-16 06:41] LABS: HCT 46.3 % (40.0-50.0); HGB 15.6 g/dL (13.5-17.5); MCH 27.3 pg (27.0-33.0); MCHC 33.7 % (32.0-36.0); MCV 81 fL (80-95); MPV 11.3 fL (8.0-11.0); Platelet Count 198 10^3/uL (130-400); RBC 5.71 10^6/uL (4.36-5.78); RDW 14.6 % (11.8-14.1); RDW-SD 42.5 fL; WBC 14.72 10^3/uL (4.4-10.8)
[2025-02-16 07:21] VITALS: BP 150/88; PULSE 109; RESP 16; TEMP 35.5; O2SAT 90
[2025-02-16] MEDS: Polyethylene Glycol 3350 17 GM PACKET PO ×2 (07:39→19:48)
[2025-02-16 08:00] VITALS: BP 143/82; PULSE 117; RESP 12; TEMP 36.7; O2SAT 93
[2025-02-16 08:52] VITALS: PULSE 78; O2SAT 95
--- NOTE | 2025-02-16 09:04 | PDOC.CMPRO ---
Date of service: 02/16/25 Time of Service: 09:04 Care Management Progress Note Progress Note Text Progress Note Text: Del was sitting up in bed when CM met with him. He was pleasant in interaction and easily engaged with CM. Del was admitted for a colostomy reversal which was done on 02/13/25. He is doing well. He has not required any pain medication today outside of the IV Acetominophen that is scheduled every 6 hours. He is also tolerating a clear liquid diet and has had several bowel movements today. Dr. Curiel informed his nurse Robby that he will see him at the end of the day and may advance his diet at that time. Del indicated that he does not anticipate the need for any services at discharge and confirmed that his girlfriend is available to assist him if needed. Discharge Potential Discharge Needs: Surgical F/U Appt Anticipated Barriers to Discharge: None Identified Patient/Family Education Needs: Review discharge instructions, discuss Ask Me Three Transportation: Private vehicle Plan: Anticipate that Del will be discharged home with no new services. Del will f/u with the surgeon, his PCP and continue per his plan of care. He will transport home in a private vehicle. CM will continue to follow. Social Determinants of Health Screening Social Determinants of health last assessed in clinic: 02/16/25 Will the Patient Participate in the Screening?: Yes Do you worry about having a steady place to live?: no Problems where you live: no known problems In the past 12 months, have you had to go without electric, gas, oil or water in your home?: no 1. Within the past 12 months, we worried whether our food would run out before we got money to buy more.: Never true 2. Within the past 12 months, the food we bought just didn't last and we didn't have money to get more.: Never true Referred to:: Not Applicable Has lack of transportation kept you from medical appointments or from doing things needed for daily living?: no Has anyone in your life made you feel unsafe or unsupported?: no How hard is it for you to pay for the very basics like food, housing, medical care, and heating? Would you say it is:: Somewhat hard Do you want help finding or keeping work or a job?: I do not need or want help If for any reason you need help with day-to-day activities such as bathing, preparing meals, shopping, managing finances, etc., do you get the help you need?: I don?t need any help How often do you feel lonely or isolated from those around you?: Never Do you speak a language other than Albanian at home?: No Does the patient want assistance with any of the above?: No Health Related Social Needs Health related social needs: problems related to housing/economic circumstances (Z59.89)
[2025-02-16 15:02] VITALS: BP 146/95; PULSE 104; RESP 16; TEMP 36.3; O2SAT 92
--- NOTE | 2025-02-16 17:49 | W.PM.PROGNOT ---
Date of Service Date of service: 02/16/25 Time of Service: 17:49 Assessment and Plan Assessment and plan (1) S/P exploratory laparotomy: Status: Acute Assessment and plan: Overall, I am reassured by how well he is doing this afternoon. His nausea this morning was a bit concerning, especially in light of some ongoing leukocytosis, but things seem to be heading in the right direction this evening. I will readvance his diet today, and repeat the CBC tomorrow. Subjective Subjective Interval history since last seen: Del is feeling much better this evening. He had about 5 bowel movements through the course of today. He says his pain is well-controlled, and although he had a little bit of difficulty initiating stooling, after he was sitting for a while, he was able to move his bowels without much issue. Exam GI Other: Abdomen remains soft and nondistended. The incision is clean, and there is no erythema or fluctuance. The old colostomy site is starting to granulate. ROSIE drain is still sanguinous, but lower volume today. It looks like it is starting to thin out a bit. Objective Last Vital Signs Temp 97.3 F L 02/16/25 15:02 Pulse 104 H 02/16/25 15:02 Resp 16 02/16/25 15:02 BP 146/95 H 02/16/25 15:02 Pulse Ox 92 02/16/25 15:02 Laboratory Results - last 24 hr 02/16/25 06:20 WBC 14.72 H RBC 5.71 Hgb 15.6 Hct 46.3 MCV 81 MCH 27.3 MCHC 33.7 RDW 14.6 H Plt Count 198 MPV 11.3 H Time Spent with Patient Time Spent with Patient: 25-34 minutes Time was spent: preparing to see the patient(eg.review tests), referring, communicating with other health post anesthesia care unit nurse, indepentently interpreting results and counseling the patient
[2025-02-16] MEDS: Enoxaparin 40 MG/0.4 ML SYR SC (17:57)
[2025-02-16 19:31] VITALS: BP 133/83; PULSE 99; RESP 16; TEMP 36.9; O2SAT 92
[2025-02-16] MEDS: Normal Saline Flush 10 ML SYR IVP (19:48)
[2025-02-17 07:04] VITALS: BP 145/83; PULSE 95; RESP 18; TEMP 36.3; O2SAT 94
[2025-02-17 07:26] LABS: HCT 43.2 % (40.0-50.0); HGB 14.7 g/dL (13.5-17.5); MCH 27.5 pg (27.0-33.0); MCV 81 fL (80-95); MPV 12.3 fL (8.0-11.0); Platelet Count 201 10^3/uL (130-400); RBC 5.34 10^6/uL (4.36-5.78); RDW 14.5 % (11.8-14.1); RDW-SD 41.9 fL; WBC 12.32 10^3/uL (4.4-10.8)
--- NOTE | 2025-02-17 07:30 | W.PM.PROGNOT ---
Date of Service Date of service: 02/17/25 Time of Service: 07:31 Assessment and Plan Assessment and plan (1) S/P exploratory laparotomy: Status: Acute Assessment and plan: This is doing very well postoperatively. He is tolerating regular diet in small quantities. Awaiting lab results from this morning to determine if he may be able to go home. Encouraged him to continue with ambulating and throughout the day. Pain is well-managed. He is urinating and defecating without difficulty. He will be reevaluated later today to determine if he is able to go home. He will require a follow up with the surgical office for jesenia to be removed and a post-op visit. Subjective Subjective Interval history since last seen: Arrived with Del in bed resting comfortably. He states that he had 2 bowel movements overnight and this morning. He denies having any nausea he states he tolerated eating a cookie and a few bites. He denies any fever, chills or night sweats. He expresses that he is very eager to charge home later today. Had a drain in the past and feels managing this if he requires this Exam Const General: cooperative, healthy appearing and comfortable Orientation: alert and oriented x3 Resp Effort & Inspection: normal respiratory effort, no audible wheezes and no cough GI Inspection: normal to inspection, non-distended and obesity Palpation: soft, no guarding and nontender Other: Laparotomy incision is well jesenia in place. No erythema, swelling or drainage ROSIE drain in place as well with serous sang drainage within the bulb Objective Last Vital Signs Temp 36.3 C L 02/17/25 07:04 Pulse 95 H 02/17/25 07:04 Resp 18 02/17/25 07:04 BP 145/83 H 02/17/25 07:04 Pulse Ox 94 02/17/25 07:04 Laboratory Results - last 24 hr 02/17/25 06:05 WBC 12.32 H RBC 5.34 Hgb 14.7 Hct 43.2 MCV 81 MCH 27.5 MCHC 34.0 RDW 14.5 H Plt Count 201 MPV 12.3 H Time Spent with Patient Time Spent with Patient: <25 minutes Time was spent: preparing to see the patient(eg.review tests), obtaining and/or reviewing separately otained hiistory and counseling the patient
[2025-02-17] MEDS: Polyethylene Glycol 3350 17 GM PACKET PO (07:38)
[2025-02-17] MEDS: Normal Saline Flush 10 ML SYR IVP (07:39)
[2025-02-17 07:42] LABS: C-Reactive Protein 11.81 mg/dL (<or=0.5)
--- NOTE | 2025-02-17 09:55 | NUR.NOTE ---
Nursing Note: Patient requested to take a shower, primary nurse reached out to the provider and they said not at this time. Sponge bath was offered and items were provided however he has refused at this time.
--- NOTE | 2025-02-17 11:09 | PDOC.CMPRO ---
Date of service: 02/17/25 Time of Service: 11:09 Care Management Progress Note Progress Note Text Progress Note Text: Del was sitting in the bedside chair when CM met with him this morning. He stated that he feels well and is hoping to be discharged today. He stated that he would gladly come in daily for lab draws, if that is what is needed. CM relayed this to the surgical team. Del is eating, walking in his room, moving his bowel. Discharge Potential Discharge Needs: PCP F/U Appt and Surgical F/U Appt Anticipated Barriers to Discharge: None Identified (surgeon stated this morning in progress note that he is following labs before discharging) Patient/Family Education Needs: Review discharge instructions, discuss Ask Me Three Transportation: Private vehicle Plan: Anticipate that Del will be discharged home later today or tomorrow with no new services. He and his will care for the drain, and feel comfortable doing so. He will f/u with surgery and with his PCP and continue per his plan of care. Del will transport home in a private vehicle. CM will continue to follow. Social Determinants of Health Screening Social Determinants of health last assessed in clinic: 02/17/25 Will the Patient Participate in the Screening?: Yes Do you worry about having a steady place to live?: no Problems where you live: no known problems In the past 12 months, have you had to go without electric, gas, oil or water in your home?: no 1. Within the past 12 months, we worried whether our food would run out before we got money to buy more.: Don't know/refused 2. Within the past 12 months, the food we bought just didn't last and we didn't have money to get more.: Don't know/refused Has lack of transportation kept you from medical appointments or from doing things needed for daily living?: no Has anyone in your life made you feel unsafe or unsupported?: no How hard is it for you to pay for the very basics like food, housing, medical care, and heating? Would you say it is:: Somewhat hard Do you want help finding or keeping work or a job?: I do not need or want help If for any reason you need help with day-to-day activities such as bathing, preparing meals, shopping, managing finances, etc., do you get the help you need?: I don?t need any help How often do you feel lonely or isolated from those around you?: Never Do you speak a language other than Tristanian at home?: No Does the patient want assistance with any of the above?: No Health Related Social Needs Health related social needs: problems related to housing/economic circumstances (Z59.89)
--- NOTE | 2025-02-17 12:03 | NUR.NOTE ---
patient is currently up in the recliner eating his lunch. The ROSIE drain was drained and had 50ccs. Patient denies pain and asked for a pillow to put behind his head. Call mata is in place. Nursing Note:
--- NOTE | 2025-02-17 12:35 | NUR.NOTE ---
Patient was educated on the importance of taking miralax post operative however he did not drink it.
--- NOTE | 2025-02-17 12:51 | NUR.NOTE ---
Nursing Note: Reviewed documentation by Pool Mackey, practical nursing instructor. Ericka Kilgore, MSN, RNC-OB, clinical instructor.
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
--- NOTE | 2025-02-17 14:32 | PGE_ITS ---
Date of Service Date of service: 02/17/25 Time of Service: 14:32 Assessment and Plan Assessment and plan (1) S/P exploratory laparotomy: Status: Acute Assessment and plan: I just sent doing quite well after colostomy takedown. I removed the drain today without any issues, I will send him home with outpatient follow-up and instructions. Subjective Subjective Interval history since last seen: Del looks great today. He is up in the chair and has been moving around. He is tolerating a diet, and is passing formed normal bowel movements. He denies any pain. Exam GI Other: Surgical drain is more serous today, and the incision is clean, with no signs of infection. I did change the packing in the old colostomy site, which appears to be granulating. Objective Last Vital Signs Temp 97.3 F L 02/17/25 07:04 Pulse 95 H 02/17/25 07:04 Resp 18 02/17/25 07:04 BP 145/83 H 02/17/25 07:04 Pulse Ox 94 02/17/25 07:04 Laboratory Results - last 24 hr 02/17/25 06:05 WBC 12.32 H RBC 5.34 Hgb 14.7 Hct 43.2 MCV 81 MCH 27.5 MCHC 34.0 RDW 14.5 H Plt Count 201 MPV 12.3 H C-Reactive Protein 11.81 H Time Spent with Patient Time Spent with Patient: <25 minutes Time was spent: preparing to see the patient(eg.review tests), referring, communicating with other health director of managed care, indepentently interpreting results and counseling the patient
--- NOTE | 2025-02-17 14:32 | CMDISCH_ITS ---
Date of service: 02/17/25 Time of Service: 14:32 LACE Index Scoring Tool Questions: Length of Stay (in days): 3 Was the patient admitted via the E.D.?: No E.D. Visits: 2 Answers: Total Score: 5 Risk of Readmission: Low Risk Care Management Discharge Plan Reason for Hospitalization: reversal of ostomy Discharge Plan: Del is discharged today with no new services. He will care for his wound sites independently. Del will f/u with his PCP and his surgeon and will continue per his plan of care. Del will transport home this afternoon with his . Patient/Family Education Needs: Review of discharge instructions, activity, limitations, and discuss Ask me 3. SDOH Health Related Social Needs: Health related social needs problems related to didi jefferson/economic circumstances (Z59.89) Health related social needs details none at this time.
== END 2025-02-17 15:37 | disposition home or self-care (01) | DRG 330 ==
LOC: PDS 06:00 → MS 15:44
PROVIDERS: Admitting Provider Surgery; PCP Nurse Practitioner; Visit Provider Surgery
PROC: 0DQM0ZZ Repair Descending Colon, Open Approach (ICD-10-PCS; CPT 44320; principal; 2025-02-14 07:30)
DX: Z43.3 Encounter for attention to colostomy (principal); K91.81 Other intraoperative complications of digestive system; Y83.2 Surgical operation with anastomosis, bypass or graft as the cause of abnormal reaction of the patient, or of later complication, without mention of misadventure at the time of the procedure; F17.210 Nicotine dependence, cigarettes, uncomplicated; Z79.899 Other long term (current) drug therapy; K57.30 Diverticulosis of large intestine without perforation or abscess without bleeding; F12.90 Cannabis use, unspecified, uncomplicated; D72.829 Elevated white blood cell count, unspecified; R11.0 Nausea; Y92.234 Operating room of hospital as the place of occurrence of the external cause
CPT/HCPCS: 44620; 00123; 36415; 80048; 85027; 86850; 86900; 86901; J1650; 86140; J0131; J0665; J0666; J0690; J1100; J1171; J1610; J1644; J1805; J2003; J2405; J2704; J3010